=== PATIENT | male | born 1955 | race Caucasian/White ===

== ENCOUNTER 2019-01-21 12:11 | Emergency (ER) | payer MEDICARE ==
[2019-01-21] MEDS ORDERED: Ketorolac Tromethamine 30 MG/ML VIAL ONE (12:36)
--- NOTE | 2019-01-21 15:19 | RAD ---
FRONTAL AND LATERAL IMAGING LEFT TIBIA AND FIBULA: DATE: 01/21/2019. COMPARISON: None. HISTORY: Pain, fall. FINDINGS: There are numerous areas of calcification overlying the soft tissues, including multifocal vascular c alcification. Subtle nondisplaced fracture is noted at the base of the fibular head. There is soft tissue swelling overlying the lateral malleolus. Dedicated left ankle imaging advised. IMPRESSION: 1. Soft tissue swelling overlying the lateral malleolus. Recommend dedicated left ankle series. 2. Findings suggesting a nondisplaced fracture at the base of the fibular head. Dedicated left knee series advised. POS: [facility]
--- NOTE | 2019-01-21 15:22 | RAD ---
THREE VIEWS OF THE LUMBAR SPINE: DATE: 01/21/2019. COMPARISON: None. HISTORY: Leg pain, trauma, fall, pain. FINDINGS: There is extensive atherosclerotic calcification of the abdominal aorta. There is multilevel lower l umbar spine hypertrophic change, most prominent at L4-5 and L5-S1. No anterolisthesis of retrolisthe sis noted. There is disk space narrowing with anterior osteophyte formation throughout the lumbar spine. No acu te fracture is noted. IMPRESSION: Multilevel degenerative change of the lumbar spine with no displaced fracture or dislocation. POS: [facility]
--- NOTE | 2019-01-21 15:23 | RAD ---
FOUR VIEWS OF LEFT KNEE: DATE: 01/21/2019. COMPARISON: None. HISTORY: Fall, trauma, pain. FINDINGS: There is chondrocalcinosis of the medial and lateral compartment with mild joint space narrowing and osteophytosis. There is a subtle nondisplaced fracture involving the base of the fibular head, best seen on the lateral examination. Cross-table lateral radiograph of the knee demonstrates no definiti ve knee joint effusion . There is extensive atherosclerotic calcification. IMPRESSION: Findings suggesting a nondisplaced proximal fibular fracture. POS: [facility]
--- NOTE | 2019-01-21 15:26 | RAD ---
THREE VIEWS OF THE LEFT ANKLE: DATE: 01/21/2019. COMPARISON: None. HISTORY: Fall, trauma, pain. FINDINGS: There is soft tissue swelling overlying the lateral malleolus. The talar dome and ankle mortise appe ar intact. On the oblique image, there is increased density overlying the tarsal bones with possible fragmentati on. This could be related to fracture or degenerative change. A dedicated left foot series advised for further assessment. IMPRESSION: 1. Soft tissue swelling overlying the lateral malleolus with no displaced fracture or dislocation at the level of the ankle. 2. Increased density of tarsal bones along dorsal aspect of mid foot, nonspecific. This could be re lated to degenerative change or age-indeterminate trauma. Recommend dedicated left foot series. POS: [facility]
--- NOTE | 2019-01-21 15:27 | RAD ---
TWO VIEWS OF THE LEFT HIP: DATE: 01/21/2019. COMPARISON: None. HISTORY: Injury, trauma, pain. FINDINGS: There is atherosclerotic calcification seen medially. There is no displaced fracture or evidence of dislocation. There is mild superior joint space narrowing with lateral acetabular osteophyte formati on. IMPRESSION: No displaced fracture or dislocation. POS: [facility]
--- NOTE | 2019-01-21 16:01 | RAD ---
LEFT FOOT THREE VIEWS: 01/21/19 HISTORY: Pain. COMPARISON: None. FINDINGS: There does appear to be midfoot soft tissue swelling. There is a collapse of the midfoot joint space specifically at the first tarsometatarsal articulation. Erosive and destructive changes are noted. Belkis stoddard evaluation of Lisfranc alignment. If there is concern for infectious or inflammatory process, f debbie evaluation with MRI is recommended. IMPRESSION: Irregularity involving the midfoot with collapse. If there is concern for infection or inflammation, consider MRI. POS: [facility]
== END 2019-01-21 14:44 | disposition home or self-care (01) ==
LOC: ERS 12:11
DX: S82.832A Other fracture of upper and lower end of left fibula, initial encounter for closed fracture (principal); E11.9 Type 2 diabetes mellitus without complications; E78.5 Hyperlipidemia, unspecified; I10 Essential (primary) hypertension; Z87.891 Personal history of nicotine dependence; Z79.899 Other long term (current) drug therapy; Z79.84 Long term (current) use of oral hypoglycemic drugs; W18.30XA Fall on same level, unspecified, initial encounter
CPT/HCPCS: 29515; 72100; 96372; J1885

== ENCOUNTER 2019-03-13 08:40 | Outpatient (CLI) | payer MEDICARE ==
--- NOTE | 2019-03-13 09:13 | MMO ---
Bilateral MAMMO Bilat Diag [facility]DI+KAREN. CLINICAL HISTORY: Patient is 63 years old and is seen for diagnostic exam. The patient has no family history of breast cancer. The patient has no personal history of cancer. VIEWS: The views performed were: bilateral craniocaudal with tomosynthesis; bilateral mediolateral oblique with tomosynthesis; and bilateral mediolateral. MAMMOGRAM FINDINGS: The breasts are almost entirely fat. There are skin calcifications seen in both breasts. There are no suspicious masses, suspicious calcifications, or new areas of architectural distortion. IMPRESSION: THERE IS NO MAMMOGRAPHIC EVIDENCE OF MALIGNANCY. A ROUTINE FOLLOW-UP MAMMOGRAM IN 1 YEAR IS RECOMMENDED. THE RESULTS OF THIS EXAM WERE SENT TO THE PATIENT. ACR BI-RADS Category 2 - Benign finding MAMMOGRAPHY NOTE: 1. A negative mammogram report should not delay a biopsy if a dominant of clinically suspicious mass is present. 2. Approximately 10% to 15% of breast cancers are not detected by mammography. 3. Adenosis and dense breasts may obscure an underlying neoplasm.
== END 2019-03-13 08:41 | disposition home or self-care (01) ==
LOC: BICMAMMO 08:40
PROVIDERS: ATTEND Urology
DX: N62 Hypertrophy of breast (principal); Q98.4 Klinefelter syndrome, unspecified
CPT/HCPCS: 77066; G0279

== ENCOUNTER 2019-03-21 06:43 | Outpatient (CLI) | payer MEDICARE ==
--- NOTE | 2019-03-21 08:11 | ULT ---
TESTICULAR ULTRASOUND WITH DOPPLER: HISTORY: Bilateral testicular atrophy. Klinefelter syndrome, hypogonadism, testicular atrophy, low testostero ne. COMPARISON: None. TECHNIQUE: Youngblood scale, color flow, Doppler imaging, and spectral waveform analysis is performed in the left and right testicle. FINDINGS: Right Hemiscrotum: There is a diminutive right testicle with a heterogeneous echotexture, measuring 2.4 x 1.3 x 1.3 cm. Right epididymis measures 0.7 x 1.7 cm. No significant fluid I the right hemiscrotum. Left Hemiscrotum: There is a diminutive heterogeneous left testicle measuring 1.9 x 1.5 x 1.4 cm. The left epididymis measures 2.4 x 0.4 cm. No significant fluid. Testicular Doppler: There is minimal flow to both testicles. IMPRESSION: Diminutive testicles with minimal flow. POS: [facility]
== END 2019-03-21 06:44 | disposition home or self-care (01) ==
LOC: BICULT 06:43
PROVIDERS: ATTEND Urology
DX: N62 Hypertrophy of breast (principal); N50.0 Atrophy of testis; Q98.4 Klinefelter syndrome, unspecified
CPT/HCPCS: 76870; 93976

== ENCOUNTER → 2019-10-20 | Day surgery (SDC) | payer MEDICARE ==
[2019-10-17 15:24] VITALS: BMI 39.7
[~2019-10-20] MED LIST: Fentanyl 100 MCG/2 ML VIAL ONE; Heparin (Artline) 1,000 ML ONE; Heparin 10,000 UNITS/1 ML VIAL ONE; Iopamidol 370 76% 100 ML VIAL ONE; Lidocaine 1% (PF) 30 ML VIAL ONE; Midazolam HCl 2 mg/2 ml Vial ONE; Nitroglycerin 100MG/250ML BOT 250 ML ONE; Verapamil 5 MG/2 ML VIAL ONE
[2019-10-20 08:08] LABS: #Eosinphils 0.6 thou/uL (0.0-0.7); #Lymphocytes 1.2 thou/uL (1.20-3.40); #Monocytes 0.5 thou/uL (0.11-0.59); #Neutrophils 3.9 thou/uL (1.40-6.50); %Basophils 0.5 % (0.0-1.0); %Eosinophils 8.8 % (0.0-10.0); %Lymphocytes 19.7 % (21.0-51.0); %Monocytes 8.5 % (0.0-10.0); %Neutrophils 62.5 % (42.0-75.0); Hemoglobin 11.4 g/dL (14.0-18.0); Mean Corpuscular HGB CONC 33.2 g/dL (32.0-36.0); Mean Corpuscular Hemoglobin 27.7 pg (27.0-31.0); Mean Corpuscular Volume 83.7 fL (78.0-98.0); Mean Platelet Volume 8.3 fL (7.4-10.4); Platelet Count 146 thou/uL (130-400); RBC Distribution Width 15.7 % (11.5-14.5); Red Blood Cell (RBC) Count 4.11 mill/uL (4.70-6.10); White Blood Cell (WBC) Count 6.3 thou/uL (4.8-10.8)
[2019-10-20 08:23] LABS: INR-International Normal Ratio 0.9; PTT 25.3 SEC (22.9-36.1); Prothrombin Time 12.3 SEC (12.0-14.7)
[2019-10-20 08:25] LABS: ALT (SGPT) 18 U/L (8-55); AST (SGOT) 19 U/L (5-34); Albumin 4.1 g/dL (3.4-4.8); Alkaline Phosphatase 63 U/L (40-110); Anion Gap 12 mmol/L (10-20); BUN (Urea Nitrogen) 15 mg/dL (8.4-25.7); Bilirubin, Total 0.4 mg/dL (0.2-1.2); Calc. Creatinine Clearance 93 mL/min (70-130); Carbon Dioxide 30 mmol/L (23-31); Cardiac Risk 3.3 (Less than 4.5); Chloride 103 mmol/L (98-107); Cholesterol 112 mg/dl (< 200 Desired); Estimated GFR-MDRD 53; Globulin 2.3 g/dL (2.4-3.5); Glucose 187 mg/dL (80-115); HDL Cholesterol 34 mg/dL (>60 Neg Risk); LDL Cholesterol, Calculated 39 mg/dL; Potassium 4.3 mmol/L (3.5-5.1); Protein, Total 6.4 g/dL (5.8-8.1); Sodium 141 mmol/L (136-145); Triglycerides 194 mg/dL (Less than 150)
--- NOTE | 2019-10-20 12:00 | RAD ---
EXAM: Chest one view: HISTORY: Preoperative evaluation for coronary bypass COMPARISON: None FINDINGS: There is rotation to the left. Heart size: Minimally enlarged. Lungs: Clear of acute process. No evidence for confluent pneumonia, pleural effusion, acute edema, or pneumothorax, or other signifi cant acute process. IMPRESSION: No significant acute intrathoracic disease. Minimal cardiomegaly.
--- NOTE | 2019-10-20 14:05 | CON ---
DATE OF CONSULTATION: 10/20/2019 REQUESTING PHYSICIAN: Dr. Miller. PRIMARY CARE PHYSICIAN: Magi Ghosh MD CHIEF COMPLAINT: Abnormal stress test. HISTORY OF PRESENT ILLNESS: The patient is a 64-year-old diabetic man with a known history of coronary disease. He had an OH in 2005. At that time, he quit smoking, but had a second OH in 2017. The same culprit vessel was stented both times and he has been maintained on Plavix since 2005. He at one time had been on baby aspirin as well, but noted excessive bruising and was taken off the baby aspirin. 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 The patient had not been having any chest pain, pressure, or squeezing suggestive of angina or any similar symptoms radiating into his back, jaws, shoulders or arms. He has not had any dyspnea on exertion, orthopnea or dependent edema. He is not just especially active with the extent of his strenuous activities being limited to mowing his lawn and weed eating. PAST MEDICAL HISTORY: Significant for coronary artery disease, hypertension, diabetes, hyperlipidemia. CURRENT MEDICATIONS: 1. Metformin 1000 mg b.i.d. 2. Glipizide 10 mg q.a.m. 3. Actos 15 mg q.a.m. 4. Plavix 75 mg a day. 5. Crestor 40 mg at bedtime. 6. Toprol-XL 50 mg at bedtime. 7. Lisinopril 40 mg a day. 8. Lasix 20 mg a day. 9. Exenatide microspheres (Bydureon BCi) subcutaneously once a week. 10. Depo-testosterone. ALLERGIES: HE REPORTS AN ALLERGY TO PENICILLIN WHICH CAUSES HIVES. SOCIAL HISTORY: Patient smoked a pack or less a day for about 30 years, but quit in 2005. FAMILY HISTORY: Unknown. REVIEW OF SYSTEMS: Negative for any eye, speech, facial, or extremity symptoms consistent with TIAs. It is negative for any hip, buttock, thigh, or calf pain consistent with claudication. Negative for any paresthesias in his hands or feet. Negative for any dyspnea on exertion, orthopnea, PND, or dependent edema. PHYSICAL EXAMINATION: GENERAL: He is 5 feet 9 inches, weighs 269 pounds, heart rate is 71, blood pressure 139/82. HEENT: He has no xanthelasma. NECK: No JVD. No carotid bruits. CHEST: Clear to auscultation. HEART: He has a regular rate and rhythm without murmur or gallop. ABDOMEN: Obese, but soft and nontender without obvious masses, bruits, or tenderness. EXTREMITIES: He has palpable radial, femoral, and dorsalis pedis pulses bilaterally. I was not able to appreciate posterior tibial pulses. He has relatively flat arches. He has venous stasis changes primarily in the right ankle with trace edema. His ankle is perhaps a little worse on the right than on the left. NEUROLOGIC: Grossly nonfocal. LABORATORY DATA: Showed a white count of 6.3, hemoglobin 11.4, hematocrit 34.4, platelets of 146,000, MCV was 83.7. PT is 12.3, INR 0.9, PTT 25.3. Electrolytes were normal. Glucose was 187, BUN 15, creatinine 1.35 with an estimated GFR of 53. In January of this year, his BUN was 18, creatinine 1.00 with an estimated GFR of 75. In May, BUN was 35 and creatinine was 1.15 with an estimated GFR of 64 and about 2 weeks ago it was 24 and 1.3 with an EGFR of 59. His calcium is 10, albumin 4.1. LFTs are normal. Triglycerides 194, cholesterol 112, LDL 39, HDL 34. His echocardiogram shows some mild LVH with grade 1 diastolic dysfunction with an LVEF of 50% to 55% and a mildly dilated left atrium. His PET Lexiscan stress test showed small to moderate anterior perfusion defect with a resting EF of 44% and stress EF of 50%. His cardiac catheterization shows a right-dominant system with a hazy 60% to 70% distal left main lesion. He has about 70% circumflex lesion in between OM 1 and 2. He has a large high diagonal proximal to about 40% or 50% lesion in the LAD at the level of the first large septal road cleaner. He has a complex lesion in the distal RCA at the bifurcation with a fairly large PDA and a smaller but extensively arborized posterolateral branch. LVEF is around 50% to 60% with an LV pressure 122 over -3 with an EDP of 29, an aortic pressure on pullback of 130/64 and mean of 94. His chest x-ray shows cardiomegaly with cardiothoracic ratio of around 60% or 65%. There is no obvious aortic knob calcification. IMPRESSION AND RECOMMENDATIONS: Asymptomatic but significant left main coronary artery disease along with disease in the circumflex and right coronary systems proper. He has an elevated LVEDP, but reasonably well-preserved systolic function. I am going to have him stop his Plavix in 3 or 4 days, start a baby aspirin a day and plan on coronary artery bypass grafting the Wednesday after , which will make him about 10 days off Plavix. Job ID: [id number]
== END ==
LOC: CCL 06:51
PROVIDERS: ATTEND Internal Medicine Cardiovascular Disease
PROC: 4A023N7 Measurement of Cardiac Sampling and Pressure, Left Heart, Percutaneous Approach (ICD-10-PCS; principal; 2019-10-20)
PROC: B2111ZZ Fluoroscopy of Multiple Coronary Arteries using Low Osmolar Contrast (ICD-10-PCS; 2019-10-20)
DX: I25.10 Atherosclerotic heart disease of native coronary artery without angina pectoris (principal); E11.9 Type 2 diabetes mellitus without complications; E78.00 Pure hypercholesterolemia, unspecified; I10 Essential (primary) hypertension; I25.2 Old myocardial infarction; Z79.84 Long term (current) use of oral hypoglycemic drugs; Z79.899 Other long term (current) drug therapy; Z87.891 Personal history of nicotine dependence; Z88.0 Allergy status to penicillin
CPT/HCPCS: 71045; 80053; 80061; 85025; 85610; 85730; 93458; 99152; 99153; C1769; J1644; J2001; J2250; J3010; Q9967

== ENCOUNTER 2019-10-25 09:37 | Outpatient (CLI) | payer MEDICARE ==
--- NOTE | 2019-10-25 18:50 | EKG ---
Test Reason : Blood Pressure : / mmHG Vent. Rate : 084 BPM Atrial Rate : 084 BPM P-R Int : 240 ms QRS Dur : 090 ms QT Int : 344 ms P-R-T Axes : 037 013 001 degrees QTc Int : 406 ms Sinus rhythm with 1st degree A-V block Inferior infarct , age undetermined No previous ECGs available Confirmed by DR. Davidson DALE MD ([id number]) on 10/25/2019 6:49:52 PM Referred By: DALILA Confirmed By:DR. Davidson DALE MD
== END 2019-10-25 09:38 | disposition home or self-care (01) ==
LOC: LABBT 09:37
PROVIDERS: ATTEND Thoracic Surgery (Cardiothoracic Vascular Surgery)
DX: Z01.818 Encounter for other preprocedural examination (principal); I25.10 Atherosclerotic heart disease of native coronary artery without angina pectoris
CPT/HCPCS: 93005; 93010

== ENCOUNTER 2019-10-30 06:17 | Inpatient (IN) | payer MEDICARE ==
[2019-10-25 14:20] LABS: #Basophils 0.1 thou/uL (0.0-0.2); #Eosinphils 0.5 thou/uL (0.0-0.7); #Lymphocytes 1.2 thou/uL (1.20-3.40); #Monocytes 0.5 thou/uL (0.11-0.59); #Neutrophils 4.1 thou/uL (1.40-6.50); %Basophils 0.8 % (0.0-1.0); %Eosinophils 7.8 % (0.0-10.0); %Lymphocytes 18.9 % (21.0-51.0); %Monocytes 7.4 % (0.0-10.0); %Neutrophils 65.1 % (42.0-75.0); Hemoglobin 12.6 g/dL (14.0-18.0); Mean Corpuscular HGB CONC 33.3 g/dL (32.0-36.0); Mean Corpuscular Hemoglobin 27.5 pg (27.0-31.0); Mean Corpuscular Volume 82.6 fL (78.0-98.0); Mean Platelet Volume 8.1 fL (7.4-10.4); Platelet Count 164 thou/uL (130-400); RBC Distribution Width 15.7 % (11.5-14.5); Red Blood Cell (RBC) Count 4.59 mill/uL (4.70-6.10); White Blood Cell (WBC) Count 6.2 thou/uL (4.8-10.8)
[2019-10-25 14:39] LABS: Anion Gap 15 mmol/L (10-20); BUN (Urea Nitrogen) 18 mg/dL (8.4-25.7); Calc. Creatinine Clearance 84 mL/min (70-130); Calcium 10.1 mg/dL (7.8-10.44); Carbon Dioxide 29 mmol/L (23-31); Chloride 103 mmol/L (98-107); Estimated GFR-MDRD 47; Glucose 167 mg/dL (80-115); Potassium 4.5 mmol/L (3.5-5.1); Sodium 142 mmol/L (136-145)
[2019-10-30] MEDS ORDERED: Clindamycin/D5W 900 mg/50 ml Premix Bag ONE ×2 (06:27→11:46)
[2019-10-30] MEDS ORDERED: Albumin 5% 500 ML ONE (06:30)
[2019-10-30] MEDS ORDERED: Heparin 10,000 UNITS/1 ML VIAL 30,000 UNITS in Sodium Chloride 0.9% 1,000 ML FS SCH (06:45)
[2019-10-30] MEDS ORDERED: Vecuronium 10 MG VIAL ONE ×2 (06:46→14:21)
[2019-10-30] MEDS ORDERED: Midazolam HCl 5 mg/5 ml Vial ONE (06:46)
[2019-10-30] MEDS ORDERED: Fentanyl 250 MCG/5 ML VIAL ONE (06:46)
[2019-10-30] MEDS ORDERED: Dexmedetomidine 200 MCG/2 ML VIAL ONE (06:46)
[2019-10-30] MEDS ORDERED: Midazolam HCl 2 mg/2 ml Vial ONE ×2 (07:18→07:21)
[2019-10-30] MEDS ORDERED: Ondansetron ODT 4 MG TAB ONE (07:21)
[2019-10-30] MEDS ORDERED: Bisacodyl 10 MG SUPP PR PRN (07:29)
[2019-10-30] MEDS ORDERED: Ondansetron PF 4 MG/2 ML Vial IVP PRN (07:29)
[2019-10-30] MEDS ORDERED: Post-Op Insulin Drip Protocol IVPB ONE (07:29)
[2019-10-30] MEDS ORDERED: Morphine 2 MG/ML SYRINGE SLOW IVP PRN (07:29)
[2019-10-30] MEDS ORDERED: niCARdipine 25 MG in Sodium Chloride 0.9% 250 ML 250 ML IVPB PRN (07:29)
[2019-10-30] MEDS ORDERED: hydrALAZINE 20 MG/ML VIAL SLOW IVP PRN (07:29)
[2019-10-30] MEDS ORDERED: Nitroglycerin 50 MG/250 ML BOT 250 ML IVPB PRN (07:29)
[2019-10-30] MEDS ORDERED: Mag-Al 1200 mg/1200 mg/30 ML UDCUP PO PRN (07:29)
[2019-10-30] MEDS ORDERED: HYDROcodone/Acetaminophen 5/325 mg Tablet PO PRN ×2 (07:29)
[2019-10-30] MEDS ORDERED: Hetastarch 6% 500 ML 500 ML IVPB PRN (07:29)
[2019-10-30] MEDS ORDERED: Fentanyl 100 MCG/2 ML VIAL SLOW IVP PRN (07:29)
[2019-10-30] MEDS ORDERED: Bisacodyl 5 MG TAB PO PRN (07:29)
[2019-10-30] MEDS ORDERED: Promethazine HCl 25 MG/ML VIAL IM PRN (07:29)
[2019-10-30] MEDS ORDERED: Potassium Chloride 20 MEQ/100 ML PREMIX BAG IVPB PRN (07:29)
[2019-10-30] MEDS ORDERED: Guaifenesin DM 100-10/5 ML UDCUP PO PRN (07:29)
[2019-10-30] MEDS ORDERED: Acetaminophen 325 MG TAB PO PRN (07:29)
[2019-10-30] MEDS ORDERED: Norepinephrine 8 MG/0.9% NS 250 ML IVPB PRN (07:29)
[2019-10-30] MEDS ORDERED: Insulin Regular 300 UNITS/3 ML VIAL ONE ×2 (07:54→08:58)
[2019-10-30] MEDS ORDERED: Dextrose 5% in Water 1,000 ML IV PRN (07:59)
[2019-10-30] MEDS ORDERED: Dextrose 50% Abboject 50 ML SYRINGE SLOW IVP PRN (07:59)
[2019-10-30] MEDS ORDERED: HUMULIN R 100 UNITS in Sodium Chloride 0.9% 100 ML IVPB SCH (07:59)
[2019-10-30] MEDS ORDERED: EXENATIDE MICROSPHERES SC SCH (09:00)
[2019-10-30] MEDS ORDERED: Ketorolac Tromethamine 30 MG/ML VIAL IVP SCH (12:00)
[2019-10-30] MEDS: Aspirin 325 MG TAB PO SCH (12:43)
[2019-10-30] MEDS: Sodium Chloride 0.9% 1,000 ML IV SCH ×2 (12:43→20:53)
[2019-10-30] MEDS: Famotidine/PF 20 mg/2ml Vial SLOW IVP SCH ×2 (12:43→20:53)
[2019-10-30] MEDS: Docusate 100 MG CAP PO SCH ×2 (12:43→20:53)
[2019-10-30] MEDS ORDERED: Cardioplegic Soln 1,000 ML BAG ONE (14:21)
[2019-10-30] MEDS ORDERED: Ondansetron PF 4 MG/2 ML Vial ONE (14:21)
[2019-10-30] MEDS ORDERED: Nitroglycerin 50 MG/250 ML BOT ONE (14:21)
[2019-10-30] MEDS ORDERED: Thrombin 5000 UNITS/5 ML VIAL ONE (14:21)
[2019-10-30] MEDS ORDERED: Calcium Chloride 1 GM/10 ML Abboject SYRINGE ONE (14:21)
[2019-10-30] MEDS ORDERED: PROPOFOL 200 MG/20 ML VIAL ONE (14:21)
[2019-10-30] MEDS ORDERED: Heparin 30,000 units/30 ml VIAL ONE (14:21)
[2019-10-30] MEDS ORDERED: Sodium Bicarb 50 MEQ/50 ML Abboject 8.4% SYRINGE ONE (14:21)
[2019-10-30] MEDS ORDERED: Aminocaproic Acid 5 GM/20 ML VIAL ONE (14:21)
[2019-10-30] MEDS ORDERED: Protamine Sulfate 250 MG/25 ML VIAL ONE (14:21)
[2019-10-30] MEDS ORDERED: Magnesium Sulfate 1 GM/2 ML VIAL ONE (14:21)
[2019-10-30] MEDS ORDERED: Glycopyrrolate 0.2 MG/ML 5 ML SYRINGE ONE (14:21)
[2019-10-30] MEDS ORDERED: Lidocaine 2% PF 5 ML VIAL ONE (14:21)
[2019-10-30] MEDS ORDERED: Norepinephrine 4 MG/4 ML VIAL ONE (14:21)
[2019-10-30] MEDS ORDERED: Lidocaine 1% PF 5 ML VIAL ONE (14:21)
[2019-10-30] MEDS ORDERED: Papaverine 60 MG/2 ML VIAL ONE (14:21)
[2019-10-30] MEDS ORDERED: Potassium Chloride 60 MEQ/30 ML VIAL ONE (14:21)
[2019-10-30] MEDS ORDERED: Heparin 5,000 UNITS/ML VIAL ONE (14:21)
[2019-10-30 14:28] LABS: Actual Bicarbonate (HCO3a) 25.8 mEq/L (22-28); Base Excess (BEa) 1.1 mEq/L (-2.0 to +3.0); CO2 Tension 41.6 mmHg (35.0-45.0); Calcium, Ionized 1.11 mmol/L (1.12-1.30); Carboxyhemoglobin (COHb) 0.7 gm% (0.0-3.0); Hemoglobin (Hb) 10.5 g/dL (14.0-18.0); Potassium - ABG Lab 4.16 mmol/L (3.70-5.30); pH, Arterial 7.41 (7.35-7.45)
[2019-10-30 14:29] LABS: Puncture Site ALINE
--- NOTE | 2019-10-30 14:35 | RAD ---
Chest one view HISTORY: Heart surgery. Follow-up. COMPARISON: 10/20/2019. FINDINGS: Cardiac silhouette is magnified and enlarged. Pulmonary vasculature is more engorged than o n the prior study with patchy bilateral perihilar infiltrates. Mediastinum is midline with new postoperative changes. Tip of an endotracheal catheter projects over the thoracic inlet. Tip of a rig ht subclavian central venous catheter projects over the left subclavian vein at the level of the midclavicular shaft. Marked on the image. Left thoracostomy tube is in place. Atelectasis at the left base. Opaque drain over the mediastinum. IMPRESSION: Interval postoperative changes of the mediastinum. Right subclavian central venous catheter extends to the left subclavian vein at the level of the midc lavicular shaft. Mild pulmonary vascular congestion. Cardiomegaly.
[2019-10-30 14:48] LABS: #Eosinphils 0.2 thou/uL (0.0-0.7); #Lymphocytes 1.2 thou/uL (1.20-3.40); #Monocytes 1.1 thou/uL (0.11-0.59); #Neutrophils 8.2 thou/uL (1.40-6.50); %Basophils 0.3 % (0.0-1.0); %Eosinophils 1.8 % (0.0-10.0); %Lymphocytes 11.1 % (21.0-51.0); %Monocytes 10.5 % (0.0-10.0); %Neutrophils 76.3 % (42.0-75.0); Hemoglobin 10.2 g/dL (14.0-18.0); Mean Corpuscular Hemoglobin 27.5 pg (27.0-31.0); Mean Corpuscular Volume 83.2 fL (78.0-98.0); Mean Platelet Volume 7.7 fL (7.4-10.4); Platelet Count 156 thou/uL (130-400); RBC Distribution Width 15.4 % (11.5-14.5); Red Blood Cell (RBC) Count 3.73 mill/uL (4.70-6.10); White Blood Cell (WBC) Count 10.7 thou/uL (4.8-10.8)
[2019-10-30 14:55] LABS: INR-International Normal Ratio 1.2; PTT 23.9 SEC (22.9-36.1); Prothrombin Time 15.2 SEC (12.0-14.7)
[2019-10-30 15:08] LABS: Anion Gap 11 mmol/L (10-20); BUN (Urea Nitrogen) 11 mg/dL (8.4-25.7); Calc. Creatinine Clearance 110 mL/min (70-130); Calcium 8.1 mg/dL (7.8-10.44); Carbon Dioxide 26 mmol/L (23-31); Chloride 108 mmol/L (98-107); Estimated GFR-MDRD 64; Glucose 104 mg/dL (80-115); Potassium 3.9 mmol/L (3.5-5.1); Sodium 141 mmol/L (136-145)
--- NOTE | 2019-10-30 15:58 | CON ---
DATE OF CONSULTATION: 10/30/2019 REASON FOR CONSULTATION: Status post CABG. HISTORY OF PRESENT ILLNESS: Mr. Gu is a very pleasant 64-year-old white gentleman, who comes to the hospital for a planned CABG. He was seen in the office for symptoms concerning for angina. He wanted to be conservative at first. We treated him medically and his symptoms continued. His stress test showed anterior ischemia with reduced EF at 44%, but normal EF on the echo at 50% to 55%. He underwent heart catheterization that showed multivessel disease, so we recommended coronary artery bypass grafting, which was performed earlier today by Dr. Figueredo. He is currently intubated and still under sedation. Blood pressure is borderline low, but holding with a MAP of 70 to 75 on no pressors. PAST MEDICAL HISTORY: 1. Hyperlipidemia. 2. Type 2 diabetes. 3. CAD. 4. Hypertension. PAST SURGICAL HISTORY: CABG earlier today. OUTPATIENT MEDICATIONS: 1. Bydureon 2 mg pen injector subcutaneous weekly. 2. Plavix 75 mg a day. 3. Lisinopril 40 mg a day. 4. Pioglitazone 50 mg a day. 5. Crestor 40 mg a day. 6. Toprol-XL 25 mg a day. 7. Metformin 1000 mg b.i.d. 8. Testosterone 200 mg intramuscular. ALLERGIES: NO KNOWN DRUG ALLERGIES. SOCIAL HISTORY: Former smoker. No alcohol or drugs. FAMILY HISTORY: Noncontributory. REVIEW OF SYSTEMS: Unobtainable as the patient is sedated and intubated. PHYSICAL EXAMINATION: VITAL SIGNS: Temperature 98.2, pulse 83, respiratory rate 18, saturating 98% on 40% FiO2, blood pressure 91/73. GENERAL: Sedated and intubated. HEENT: Normocephalic and atraumatic. NECK: Supple. LUNGS: Have coarse breath sounds anteriorly. CARDIOVASCULAR: S1 and S2. There is a three-component rub consistent with his recent CABG and chest tubes. ABDOMEN: Soft. EXTREMITIES: Bruised. No edema in the right leg, 1+ in the left leg where the harvest sites were. SKIN: Warm and dry. LABORATORY DATA: Laboratory work was reviewed. CBC with a white count of 10; hemoglobin of 12.6 on admission, 10.2 after bypass; hematocrit of 31; platelet count of 156. Coags were normal. ABG was unremarkable. Chemistries were unremarkable. Telemetry was reviewed. ASSESSMENT: 1. Multivessel coronary artery disease. 2. Status post coronary artery bypass grafting. 3. Hypertension. 4. Hyperlipidemia. PLAN: 1. Continue supportive care for now. 2. He has been weaned off his Levophed and is holding his blood pressure well. I expect his blood pressure to come back up once he wakes up from anesthesia. 3. Aspirin and statin for life. 4. Beta-manish and CORTNEY inhibitor once blood pressure allows. 5. PT once more stable. Thank you for letting us participate in the care of your patient. We will follow. Job ID: [id number]
--- NOTE | 2019-10-30 16:27 | OP ---
DATE OF PROCEDURE: 10/30/2019 PROCEDURES PERFORMED: 1. Coronary artery bypass grafting x4 with left internal mammary artery to the distal left anterior descending, reverse greater saphenous vein grafts from the aorta to the second obtuse marginal from the obtuse marginal 2 graft to the obtuse marginal 1 and from the aorta to the posterior descending artery. 2. A 5-Nepalese right femoral arterial line placement. PREOPERATIVE DIAGNOSIS: Left main coronary artery disease. POSTOPERATIVE DIAGNOSIS: Left main coronary artery disease. NURSING MANAGER: Matthew Causey MD. ANESTHESIA: General endotracheal anesthesia. INDICATIONS: The patient is a rather large 64-year-old diabetic man with known coronary artery disease, having had coronary stenting following each of 2 previous myocardial infarctions. Screening stress testing suggested reversible ischemia and cardiac catheterization demonstrated left main coronary artery disease. He is now taken to the operating room for surgical revascularization. FINDINGS: Pump time 93 minutes. Cross-clamp time 56 minutes. Good quality saphenous vein that came very large in the proximal thigh. Large heart. Large good quality internal mammary artery. The LAD was about a 2-mm vessel. The OM1 was about 2 mm, the OM2 was about 1.5 to 2 mm, and the PDA was about 2 mm. The pericardium was loosely reapproximated. NARRATIVE REPORT: After informed consent was obtained, the patient was taken to the operating room and placed in supine position on the operating table. After the induction of general anesthesia, the patient's left greater saphenous vein was ultrasonographically mapped and marked. His right upper chest was prepped and draped in a sterile fashion and he was placed in Trendelenburg. A triple-lumen central line kit was used to place a right subclavian line by the Seldinger technique. All 3 ports easily aspirated and flushed. The line was secured. There had been significant difficulty in establishing peripheral IV access and radial artery access. The left radial artery had been successfully cannulated, but it became difficult to draw back on the line and it was opted to place a femoral arterial line in an attempt to achieve secure arterial line monitoring. His right groin was prepped and draped in sterile fashion. After ultrasonographically identifying the level of the common femoral bifurcation, a 5-Nepalese arterial sheath kit was used to place a right femoral line by the Seldinger technique, although the patient's body habitus made the line somewhat positional. It aspirated and flushed well. The line was secured and then the patient's torso, groins, and lower extremities were prepped and draped in sterile fashion. Greater saphenous vein was exposed a little above the left knee and was endoscopically mobilized proximally, it became rather large. It was feasible to endoscopically harvest the vein from the thigh, but fat obscured adequate visualization of the lower leg vein, and in order to divide the side branches, a skin bridge technique was utilized. The vein was prepared for use as a graft and the harvest sites were closed in layers of subcutaneous and subcuticular Vicryl. A median sternotomy was performed and the left pleural space was entered. The left ROSA was mobilized as a pedicle from the level of the xiphoid to the level of subclavian vein, controlling side branches with small hemoclips. The patient was heparinized and the mammary was ligated and divided distally. There was good flow through the mammary, which was then instilled intraluminally with papaverine solution. It dilated nicely with that. The mammary bed was inspected for hemostasis. An ROSA retractor was placed with a Frausto retractor. The pericardium was opened and marsupialized. The aorta was palpated and was soft. The patient had a very large heart and the chest. Because of body habitus, it was opted to use a 20-Nepalese femoral arterial cannula for aortic cannulation. A double concentric pursestring of 2-0 Ethibond was placed in the ascending aorta beyond the pericardial reflection and a single pursestring was placed in the right atrial appendage. Arterial and venous cannulas were inserted and secured by the pursestrings. The plane between the aorta and the pulmonary artery was developed. The heart was examined and the vessels to be bypassed were identified. A longitudinal slit was made in the pericardium anterior to the left phrenic nerve, through which the mammary could be passed. An aortic cross-clamp was applied and cardioplegia was administered through an aortic root needle. When arrest had been achieved, attention was turned 1st to the PDA. It was exposed and opened beyond palpable plaquing and a stent, where it was a good quality vessel. Saphenous vein was reversed and anastomosed their end-to-side with running Prolene suture and the anastomosis was tested by flushing cold cardioplegia down the graft. The OM2 was then opened just proximal to where it dove intramyocardially just a little bit beyond where it emerged from the AV groove. It was grafted end-to-side with saphenous vein. The OM1 was then opened at the level of the tip of the left atrial appendage before it dove intramyocardially. It was grafted end-to-side with saphenous vein. The LAD was then opened distally, where it was readily accessible in a good quality vessel. The mammary was anastomosed there with running 7-0 Prolene and the mammary pedicle was tacked to the epicardium. The aortic cross-clamp was replaced with a partial occluding clamp and 2 aortotomies were made in the ascending aorta with a scalpel and punch. The PDA graft was brought along the right side of the heart and anastomosed to the more proximal aortotomy and the OM2 graft was brought along the left side of the heart and anastomosed to the more distal aortotomy. The OM1 graft was anastomosed to the OM2 graft about a centimeter or a centimeter and a half beyond the proximal anastomosis. The partial occluding clamp was removed and the vein grafts were de-aired and the bulldogs removed from them. The anastomoses were inspected for hemostasis and the proximal anastomoses were marked with small hemoclips. A left pleural drain and a posterior pericardial drain were placed, bringing them out through separate incisions and securing it in the skin with suture. Right atrial and right ventricular temporary epicardial pacing wires were placed. The patient was then easily from cardiopulmonary bypass. Aortic and venous cannulas were removed and the pursestring secured. Protamine was administered. When hemostasis was adequate, an anterior mediastinal drain was placed and the mediastinal fat and pericardium were tacked back together to affect a loose pericardial closure. The cut surfaces of the sternum were treated with platelet-rich GPS and vancomycin paste. #7 stainless steel wires were placed along the full length of the sternum and zip ties around the body of the sternum. The wires and zip ties were tightened. The soft tissues were irrigated and treated with platelet-poor GPS. The fascia was closed over the wires and zip ties with running #1 Vicryl. Subcutaneous tissue was reapproximated with 2-0 Vicryl and the skin was closed with a 3-0 Vicryl subcuticular suture. Dermabond and dressings were applied and the patient was taken to the intensive care unit in stable condition. Job ID: [id number]
[2019-10-30 19:09] LABS: Actual Bicarbonate (HCO3a) 22.2 mEq/L (22-28); Base Excess (BEa) -2.9 mEq/L (-2.0 to +3.0); Calcium, Ionized 1.13 mmol/L (1.12-1.30); Carboxyhemoglobin (COHb) 0.6 gm% (0.0-3.0); Hemoglobin (Hb) 10.5 g/dL (14.0-18.0); O2 Tension (PaO2) 89.4 mmHg (> 80.0); Potassium - ABG Lab 4.43 mmol/L (3.70-5.30); pH, Arterial 7.36 (7.35-7.45)
[2019-10-30 19:10] LABS: Puncture Site LINE
[2019-10-30] MEDS: Fentanyl 100 MCG/2 ML VIAL SLOW IVP PRN (19:51)
[2019-10-30] MEDS: Rosuvastatin 20 MG TAB PO SCH (20:53)
[2019-10-30 21:48] LABS: Hemoglobin 10.4 g/dL (14.0-18.0)
[2019-10-30 22:03] LABS: Potassium 5.1 mmol/L (3.5-5.1)
[2019-10-30] MEDS: Acetaminophen 1,000 MG in Premix Bag 1 BAG IVPB SCH (23:43)
[2019-10-31] MEDS: Fentanyl 100 MCG/2 ML VIAL SLOW IVP PRN ×8 (00:31→23:47)
[2019-10-31 03:31] LABS: #Lymphocytes 0.8 thou/uL (1.20-3.40); #Monocytes 1.2 thou/uL (0.11-0.59); #Neutrophils 8.7 thou/uL (1.40-6.50); %Basophils 0.2 % (0.0-1.0); %Eosinophils 0.1 % (0.0-10.0); %Lymphocytes 7.4 % (21.0-51.0); %Monocytes 10.8 % (0.0-10.0); %Neutrophils 81.5 % (42.0-75.0); Hemoglobin 9.4 g/dL (14.0-18.0); Mean Corpuscular HGB CONC 33.3 g/dL (32.0-36.0); Mean Corpuscular Hemoglobin 28.2 pg (27.0-31.0); Mean Corpuscular Volume 84.9 fL (78.0-98.0); Mean Platelet Volume 8.3 fL (7.4-10.4); Platelet Count 167 thou/uL (130-400); RBC Distribution Width 15.4 % (11.5-14.5); Red Blood Cell (RBC) Count 3.33 mill/uL (4.70-6.10); White Blood Cell (WBC) Count 10.7 thou/uL (4.8-10.8)
[2019-10-31 03:53] LABS: Anion Gap 12 mmol/L (10-20); BUN (Urea Nitrogen) 16 mg/dL (8.4-25.7); Calc. Creatinine Clearance 94 mL/min (70-130); Carbon Dioxide 24 mmol/L (23-31); Chloride 108 mmol/L (98-107); Estimated GFR-MDRD 53; Glucose 142 mg/dL (80-115); Potassium 4.7 mmol/L (3.5-5.1); Sodium 139 mmol/L (136-145)
[2019-10-31] MEDS: Acetaminophen 1,000 MG in Premix Bag 1 BAG IVPB SCH ×3 (05:12→17:57)
[2019-10-31] MEDS ORDERED: Furosemide 40 MG/4 ML VIAL SLOW IVP SCH ×2 (06:45→16:00)
--- NOTE | 2019-10-31 07:40 | RAD ---
Chest AP view INDICATION: Status post open-heart surgery COMPARISON: October 30, 2019 FINDINGS: Lungs:Perihilar edema has mildly improved. Cardiac silhouette:Moderate cardiomegaly persists. Pulmonary vasculature:Pulmonary vascular congestion is stable. Pleural spaces:Left-sided thoracostomy tube is unchanged. No pneumothorax. Upper abdomen:No abnormality seen. Osseous structures: No acute osseous abnormality. Additional findings:Right subclavian central venous catheter crossing midline and projecting into the left subclavian vein is unchanged in position. Midline sternotomy changes are stable. IMPRESSION: Improving central edema pattern.
[2019-10-31] MEDS: Docusate 100 MG CAP PO SCH ×2 (08:25→20:54)
[2019-10-31] MEDS: Gabapentin 300 MG CAP PO SCH ×2 (08:26→20:54)
[2019-10-31] MEDS: Aspirin 325 MG TAB PO SCH (08:26)
[2019-10-31] MEDS: Famotidine/PF 20 mg/2ml Vial SLOW IVP SCH ×2 (08:29→20:54)
[2019-10-31] MEDS: Insulin Regular 300 UNITS/3 ML VIAL SC PRN ×5 (10:08→23:52)
--- NOTE | 2019-10-31 10:53 | CON ---
DATE OF CONSULTATION: This is a 64-year-old gentleman, status post CABG in the ICU. REASON FOR CONSULTATION: He had abnormal stress test done, which showed depressed EF of 44%, and cardiac cath revealed severe coronary artery disease. He is status post CABG. Postop is extubated. He denies any difficulty breathing. X-ray shows no new infiltrates. PAST MEDICAL HISTORY: Pertinent for, 1. Hypertension. 2. Previous coronary disease. 3. Hyperlipidemia. 4. Tobacco abuse in the past. PAST SURGICAL HISTORY: Previous cardiac stent twice. ALLERGIES: PENICILLIN. SOCIAL HISTORY: Unremarkable. FAMILY HISTORY: Unremarkable. HOME MEDICATIONS: 1. Metformin 1000 b.i.d. 2. Glipizide 10 a day. 3. Calcium 40. 4. Actos 15. 5. . 6. Lisinopril 20. 7. Lasix 20. 8. B12. REVIEW OF SYSTEMS: Unremarkable postop. PHYSICAL EXAMINATION: GENERAL: Awake, alert, and responsive. VITAL SIGNS: Blood pressure 100/63, pulse 80, respiratory rate 18, saturations 90%. He is afebrile. CHEST: Reveals no wheezing or crackles. CARDIAC: Normal S1 and S2. No gallops. ABDOMEN: No masses. Soft. LABORATORY DATA: White count 10,000. Lytes are normal. Creatinine 1.34. ASSESSMENT AND PLAN: 1. Status post coronary artery bypass graft, left main. 2. Diabetes. 3. Former smoker. 4. Mild azotemia. 5. Hypertension. He appears to be stable in the ICU. Continue PT supportive care. Disposition as per Cardiology. We will follow on the ICU. Job ID: [id number]
--- NOTE | 2019-10-31 17:30 | PDOC.CPN ---
- Subjective Date: 10/31/19 Time: 17:28 Interval history: He is now extubated. Off pressors since noon. Passing gas. - Review of Systems General: denies: fever/chills, weight/appetite/sleep changes, night sweats, fatigue Respiratory: reports: cough. denies: congestion, shortness of breath, exercise intolerance Cardiovascular: reports: edema. denies: chest pain, palpitation, paroxysmal nocturnal dyspnea, orthopnea Gastrointestinal: denies: nausea, vomiting, diarrhea, constipation, abd pain, GI bleeding Musculoskeletal: reports: pain. denies: tenderness, stiffness, swelling, arthritis/arthralgias Neurological: denies: numbness, syncope, seizure, weakness - Objective Allergies/Adverse Reactions: Allergies Allergy/AdvReac Type Severity Reaction Status Date / Time Penicillins Allergy Verified 10/25/19 08:44 Visit Medications: Current Medications Al Hydroxide/Mg Hydroxide (Maalox) 30 ml PO Q4H PRN PRN Reason: Indigestion Albuterol/Ipratropium (Duoneb) 3 ml NEB [id number] PRN PRN Reason: SHORTNESS OF BREATH Aspirin (Aspirin) 325 mg PO DAILY [facility] Last Admin: 10/31/19 08:26 Dose: 325 mg Bisacodyl (Dulcolax) 10 mg PO Q12H PRN PRN Reason: Constipation Bisacodyl (Dulcolax) 10 mg [place] Q12H PRN PRN Reason: Constipation Dextrose/Water (Dextrose 50%) 25 gm SLOW IVP PRN PRN PRN Reason: PER HYPOGLYCEMIC PROTOCOL Docusate Sodium (Colace) 100 mg PO BID [facility] Last Admin: 10/31/19 08:25 Dose: 100 mg Famotidine (Pepcid) 20 mg SLOW IVP Q12HR [facility] Last Admin: 10/31/19 08:29 Dose: 20 mg Fentanyl (Sublimaze) 25 mcg SLOW IVP Q2H PRN PRN Reason: Moderate Pain (4-6) Stop: 11/01/19 07:29 Last Admin: 10/30/19 22:39 Dose: 25 mcg Fentanyl (Sublimaze) 50 mcg SLOW IVP Q2H PRN PRN Reason: Severe Pain (7-10) Stop: 11/01/19 07:29 Last Admin: 10/31/19 16:00 Dose: 50 mcg Furosemide (Lasix) 40 mg SLOW IVP 1600 ELISA Stop: 10/31/19 18:00 Last Admin: 10/31/19 16:00 Dose: 40 mg Gabapentin (Neurontin) 300 mg PO BID [facility] Last Admin: 10/31/19 08:26 Dose: 300 mg Glucagon (Glucagon) 1 mg SC PRN PRN PRN Reason: PER HYPOGLYCEMIC PROTOCOL Guaifenesin/Dextromethorphan (Robitussin Dm) 15 ml PO Q4H PRN PRN Reason: Cough Hydralazine HCl (Apresoline) 10 mg SLOW IVP Q6H PRN PRN Reason: To Maintain SBP< 140mmHG Norepinephrine Bitartrate (Levophed) 250 mls @ 0 mls/hr IVPB PRN PRN; Protocol PRN Reason: To maintain SBP > 90 mmHG Nicardipine HCl 25 mg/ Sodium (Chloride) 260 mls @ 0 mls/hr IVPB INF PRN; Protocol PRN Reason: To Maintain SBP< 140mmHG Nitroglycerin/Dextrose (Nitroglycerin 50 Mg/250 Ml Bot) 250 mls @ 0 mls/hr IVPB PRN PRN; Protocol PRN Reason: To Maintain SBP< 140mmHG Insulin Human Regular 100 (units/ Sodium Chloride) 101 mls @ 0 mls/hr IVPB INF ELISA; Protocol Dextrose/Water (D5w) 1,000 mls @ 0 mls/hr IV INF PRN PRN Reason: PRN HYPOGLYCEMIC PROTOCOL Acetaminophen 1,000 mg/ Device 100 mls @ 400 mls/hr IVPB Q6HR ELISA Stop: 10/31/19 18:14 Last Admin: 10/31/19 11:14 Dose: 100 mls Insulin Human Regular (Humulin R) 0 units SC Q4H PRN; Protocol PRN Reason: POST OP SLIDING SCALE Last Admin: 10/31/19 16:02 Dose: 6 unit Morphine Sulfate (Morphine) 2 mg SLOW IVP Q15MIN PRN PRN Reason: Severe Pain (7-10) Ondansetron HCl (Zofran) 4 mg IVP Q6H PRN PRN Reason: Nausea/Vomiting Exenatide Microspheres [ Bydureon Bcise] 0 each SC Q7DAYS [facility] Potassium Chloride (Kcl) 20 meq IVPB PRN PRN PRN Reason: K level </= 4.0 Last Admin: 10/30/19 15:22 Dose: 20 meq Promethazine HCl (Phenergan) 6.25 mg IM Q4H PRN PRN Reason: Nausea/Vomiting Rosuvastatin Calcium (Crestor) 40 mg PO HS [facility] Last Admin: 10/30/19 20:53 Dose: 40 mg Sodium Chloride (Flush - Normal Saline) 10 ml IVF Q12HR ELISA Last Admin: 10/31/19 08:30 Dose: 10 ml Vital Signs & Weight: Vital Signs Temp Pulse Ox 10/31/19 08:00 98.7 F 94 L Weight 4.445 oz - Physical Exam General: alert & oriented x3 HEENT: mucus membranes moist Neck: supple neck, midline trachea Cardiac: regular rate and rhythm Lungs: normal breath sounds Neuro: grossly intact Abdomen: active bowel sounds, soft, non-tender Extremities: 1+ LE edema Skin: clear Musculoskeletal: normal range of motion - Labs Result Diagrams: 10/31/19 03:20 10/31/19 03:20 - Telemetry Sinus rhythms and dysrhythmias: sinus rhythm - Assessment/Plan Assessment/Plan: 1. Multivessel CAD. 2. S/P CABG x 4, AMBRIZ to LAD, SVG to OM2 sequential to OM3, SVG to RPDA. 3. Type 2 DM 4. HTN PLAN: - Aspirin/statin - BB and ACEI once BP allows - Start PT soon.
[2019-10-31] MEDS: Rosuvastatin 20 MG TAB PO SCH (20:54)
[2019-11-01] MEDS: Fentanyl 100 MCG/2 ML VIAL SLOW IVP PRN (01:59)
[2019-11-01] MEDS ORDERED: Fentanyl 100 MCG/2 ML VIAL ONE (04:09)
[2019-11-01] MEDS ORDERED: Rosuvastatin 20 MG TAB ONE (09:05)
--- NOTE | 2019-11-01 13:46 | PRG ---
DATE OF SERVICE: 11/01/2019 SUBJECTIVE: Warren Gu is status post CABG. He is doing well. He is less short of breath, less cough and less wheezing. OBJECTIVE: VITAL SIGNS: Blood pressure 119/74, pulse 109, saturations 98%, respiratory rate 18. CHEST: No wheezing, crackles. CARDIAC: Normal S1, S2. No gallops. ABDOMEN: No masses. ASSESSMENT: Status post coronary artery bypass grafting, respiratory failure, stable. PLAN: Disposition as per Cardiology. We will follow while in the ICU. Job ID: [id number]
[2019-11-01] MEDS ORDERED: HYDROmorphone 2 MG TAB PO PRN (14:25)
[2019-11-01] MEDS ORDERED: Acetaminophen 1,000 MG in Premix Bag 1 BAG IVPB SCH (14:30)
[2019-11-01] MEDS: Aspirin 325 MG TAB PO SCH (15:13)
[2019-11-01] MEDS: Docusate 100 MG CAP PO SCH ×2 (15:13→20:48)
[2019-11-01 15:48] LABS: Anion Gap 6 mmol/L (10-20); BUN (Urea Nitrogen) 20 mg/dL (8.4-25.7); Calc. Creatinine Clearance 100 mL/min (70-130); Calcium 8.1 mg/dL (7.8-10.44); Carbon Dioxide 30 mmol/L (23-31); Chloride 103 mmol/L (98-107); Estimated GFR-MDRD 56; Glucose 191 mg/dL (80-115); Potassium 4.2 mmol/L (3.5-5.1); Sodium 135 mmol/L (136-145)
[2019-11-01] MEDS: Insulin Regular 300 UNITS/3 ML VIAL SC PRN ×2 (16:49→21:20)
--- NOTE | 2019-11-01 18:15 | PDOC.CPN ---
- Subjective Date: 11/01/19 Time: 18:13 Interval history: Doing better. On the chair eating on my evaluation. He has walked with PT today and has been sitting all morning. - Review of Systems General: denies: fever/chills, weight/appetite/sleep changes, night sweats, fatigue Respiratory: reports: cough. denies: congestion, shortness of breath, exercise intolerance Cardiovascular: denies: chest pain, palpitation, edema, paroxysmal nocturnal dyspnea, orthopnea Gastrointestinal: denies: nausea, vomiting, diarrhea, constipation, abd pain, GI bleeding Musculoskeletal: denies: pain, tenderness, stiffness, swelling, arthritis/ arthralgias Neurological: denies: numbness, syncope, seizure, weakness - Objective Allergies/Adverse Reactions: Allergies Allergy/AdvReac Type Severity Reaction Status Date / Time Penicillins Allergy Verified 10/25/19 08:44 Visit Medications: Current Medications Al Hydroxide/Mg Hydroxide (Maalox) 30 ml PO Q4H PRN PRN Reason: Indigestion Albuterol/Ipratropium (Duoneb) 3 ml NEB [id number] PRN PRN Reason: SHORTNESS OF BREATH Aspirin (Aspirin) 325 mg PO DAILY [facility] Last Admin: 11/01/19 15:13 Dose: Not Given Bisacodyl (Dulcolax) 10 mg PO Q12H PRN PRN Reason: Constipation Bisacodyl (Dulcolax) 10 mg [place] Q12H PRN PRN Reason: Constipation Dextrose/Water (Dextrose 50%) 25 gm SLOW IVP PRN PRN PRN Reason: PER HYPOGLYCEMIC PROTOCOL Docusate Sodium (Colace) 100 mg PO BID [facility] Last Admin: 11/01/19 15:13 Dose: Not Given Famotidine (Pepcid) 20 mg SLOW IVP Q12HR [facility] Last Admin: 10/31/19 20:54 Dose: 20 mg Gabapentin (Neurontin) 300 mg PO BID [facility] Last Admin: 10/31/19 20:54 Dose: 300 mg Glucagon (Glucagon) 1 mg SC PRN PRN PRN Reason: PER HYPOGLYCEMIC PROTOCOL Guaifenesin/Dextromethorphan (Robitussin Dm) 15 ml PO Q4H PRN PRN Reason: Cough Hydralazine HCl (Apresoline) 10 mg SLOW IVP Q6H PRN PRN Reason: To Maintain SBP< 140mmHG Hydromorphone HCl (Dilaudid) 4 mg PO Q4H PRN PRN Reason: Moderate Pain (4-7) Hydromorphone HCl (Dilaudid) 8 mg PO Q4H PRN PRN Reason: Severe Pain (8-10) Norepinephrine Bitartrate (Levophed) 250 mls @ 0 mls/hr IVPB PRN PRN; Protocol PRN Reason: To maintain SBP > 90 mmHG Nicardipine HCl 25 mg/ Sodium (Chloride) 260 mls @ 0 mls/hr IVPB INF PRN; Protocol PRN Reason: To Maintain SBP< 140mmHG Nitroglycerin/Dextrose (Nitroglycerin 50 Mg/250 Ml Bot) 250 mls @ 0 mls/hr IVPB PRN PRN; Protocol PRN Reason: To Maintain SBP< 140mmHG Insulin Human Regular 100 (units/ Sodium Chloride) 101 mls @ 0 mls/hr IVPB INF ELISA; Protocol Dextrose/Water (D5w) 1,000 mls @ 0 mls/hr IV INF PRN PRN Reason: PRN HYPOGLYCEMIC PROTOCOL Acetaminophen 1,000 mg/ Device 100 mls @ 400 mls/hr IVPB Q6HR [facility] Stop: 11/02/19 12:01 Acetaminophen 1,000 mg/ Device 100 mls @ 400 mls/hr IVPB NOW [facility] Stop: 11/02/19 14:31 Last Admin: 11/01/19 15:14 Dose: 100 mls Insulin Human Regular (Humulin R) 0 units SC Q4H PRN; Protocol PRN Reason: POST OP SLIDING SCALE Last Admin: 11/01/19 16:49 Dose: 8 unit Morphine Sulfate (Morphine) 2 mg SLOW IVP Q15MIN PRN PRN Reason: Severe Pain (7-10) Ondansetron HCl (Zofran) 4 mg IVP Q6H PRN PRN Reason: Nausea/Vomiting Exenatide Microspheres [ Bydureon Bcise] 0 each SC Q7DAYS [facility] Potassium Chloride (Kcl) 20 meq IVPB PRN PRN PRN Reason: K level </= 4.0 Last Admin: 10/30/19 15:22 Dose: 20 meq Promethazine HCl (Phenergan) 6.25 mg IM Q4H PRN PRN Reason: Nausea/Vomiting Rosuvastatin Calcium (Crestor) 40 mg PO HS [facility] Last Admin: 10/31/19 20:54 Dose: 40 mg Sodium Chloride (Flush - Normal Saline) 10 ml IVF Q12HR ELISA Last Admin: 10/31/19 20:54 Dose: 10 ml Vital Signs & Weight: Vital Signs Pulse Pulse BP BP Pulse Ox Pulse Ox Pulse Ox 11/01/19 16:16 99 11/01/19 14:45 108 H 106 H 122/79 100/61 100 92 L 11/01/19 08:57 109 H 109 H 131/79 119/74 96 93 L Weight 277 lb 12.519 oz - Physical Exam General: alert & oriented x3 HEENT: mucus membranes moist, normocephaly Neck: supple neck Cardiac: regular rate and rhythm, no murmur Lungs: normal breath sounds Neuro: grossly intact Abdomen: active bowel sounds, soft, non-tender Extremities: 1+ LE edema Skin: clear Musculoskeletal: no pain - Labs Result Diagrams: 10/31/19 03:20 11/01/19 04:20 - Telemetry Sinus rhythms and dysrhythmias: sinus rhythm - Assessment/Plan Assessment/Plan: 1. Multivessel CAD. 2. S/P CABG x 4, AMBRIZ to LAD, SVG to OM2 sequential to OM3, SVG to RPDA. 3. Type 2 DM 4. HTN PLAN: - Aspirin/statin - Will start low dose Toprol XL - ACEI once BP allows - Advance PT as tolerated. - May transfer to telemetry unit.
[2019-11-01 18:27] LABS: %Eosinophils 0.8 % (0.0-10.0); %Lymphocytes 7.9 % (21.0-51.0); %Neutrophils 81.9 % (42.0-75.0); Hemoglobin 8.3 g/dL (14.0-18.0); Mean Corpuscular HGB CONC 31.8 g/dL (32.0-36.0); Mean Corpuscular Hemoglobin 26.9 pg (27.0-31.0); Mean Corpuscular Volume 84.6 fL (78.0-98.0); Platelet Count 114 thou/uL (130-400); RBC Distribution Width 15.8 % (11.5-14.5); White Blood Cell (WBC) Count 7.9 thou/uL (4.8-10.8)
[2019-11-01 18:28] LABS: #Eosinphils 0.1 thou/uL (0.0-0.7); #Lymphocytes 0.6 thou/uL (1.20-3.40); #Monocytes 0.7 thou/uL (0.11-0.59); #Neutrophils 6.5 thou/uL (1.40-6.50); %Basophils 0.6 % (0.0-1.0); Mean Platelet Volume 7.6 fL (7.4-10.4)
--- NOTE | 2019-11-01 20:15 | RAD ---
EXAM: CHEST ONE VIEW: 11/01/19 COMPARISON: 10/31/19 HISTORY: Status open heart surgery. FINDINGS: The exam is on the taken list and submitted for interpretation on 11/01/19 at 8:12 p.m. Redemonstration of sternotomy wires, vascular catheters and a left sided chest tube. Heart continues to be enlarged. There are bilateral perihilar opacities, similar to the previous examination. No def inite pneumothorax. IMPRESSION: Findings compatible with recent open heart surgery. POS: OFF
[2019-11-01] MEDS: Gabapentin 300 MG CAP PO SCH ×2 (20:47→22:39)
[2019-11-01] MEDS: Famotidine/PF 20 mg/2ml Vial SLOW IVP SCH ×2 (20:47→22:39)
[2019-11-01] MEDS: Acetaminophen 1,000 MG in Premix Bag 1 BAG IVPB SCH (20:48)
[2019-11-01] MEDS: Rosuvastatin 20 MG TAB PO SCH (20:49)
[2019-11-01] MEDS: HYDROmorphone 2 MG TAB PO PRN (20:49)
[2019-11-02] MEDS: Insulin Regular 300 UNITS/3 ML VIAL SC PRN ×5 (00:29→16:57)
[2019-11-02] MEDS: Acetaminophen 1,000 MG in Premix Bag 1 BAG IVPB SCH ×3 (00:56→11:45)
[2019-11-02 03:51] VITALS: BMI 39.9
[2019-11-02 04:41] LABS: Anion Gap 10 mmol/L (10-20); BUN (Urea Nitrogen) 24 mg/dL (8.4-25.7); Calc. Creatinine Clearance 94 mL/min (70-130); Calcium 8.1 mg/dL (7.8-10.44); Carbon Dioxide 29 mmol/L (23-31); Chloride 102 mmol/L (98-107); Estimated GFR-MDRD 53; Glucose 182 mg/dL (80-115); Potassium 4.4 mmol/L (3.5-5.1); Sodium 137 mmol/L (136-145)
[2019-11-02 04:45] LABS: #Eosinphils 0.3 thou/uL (0.0-0.7); #Lymphocytes 0.7 thou/uL (1.20-3.40); #Monocytes 0.6 thou/uL (0.11-0.59); #Neutrophils 4.5 thou/uL (1.40-6.50); %Basophils 0.3 % (0.0-1.0); %Eosinophils 4.8 % (0.0-10.0); %Lymphocytes 11.5 % (21.0-51.0); %Monocytes 9.9 % (0.0-10.0); %Neutrophils 73.4 % (42.0-75.0); Hemoglobin 7.9 g/dL (14.0-18.0); MDiff Complete? YES; Mean Corpuscular HGB CONC 32.1 g/dL (32.0-36.0); Mean Corpuscular Hemoglobin 27.3 pg (27.0-31.0); Mean Corpuscular Volume 85.1 fL (78.0-98.0); Mean Platelet Volume 8.8 fL (7.4-10.4); Ovalocytes SLIGHT = 2-5 cells (100X) (0-1/hpf); Platelet Count 82 thou/uL (130-400); Platelet Morphology Comment Appears Decreased; RBC Distribution Width 15.4 % (11.5-14.5); White Blood Cell (WBC) Count 6.2 thou/uL (4.8-10.8)
[2019-11-02] MEDS: Aspirin 325 MG TAB PO SCH (08:27)
[2019-11-02] MEDS: Famotidine/PF 20 mg/2ml Vial SLOW IVP SCH (08:27)
[2019-11-02] MEDS: Docusate 100 MG CAP PO SCH ×2 (08:27→20:58)
[2019-11-02] MEDS: Gabapentin 300 MG CAP PO SCH ×2 (08:28→20:58)
--- NOTE | 2019-11-02 08:52 | PRG ---
DATE OF SERVICE: 11/02/2019 SUBJECTIVE: A 64-year-old gentleman, who is better, less short of breath. OBJECTIVE: VITAL SIGNS: Temperature 99, saturations 100% on 3 L, blood pressure 112/70, and respiratory rate 18. CHEST: Decreased breath sounds, no wheezing. CARDIAC: Normal S1, S2. No gallops. ABDOMEN: No masses. LABORATORY DATA: Creatinine 1.3. White count 6000, H and H are 7 and 24, platelet count is low at 82. IMPRESSION: Status post coronary artery bypass grafting, thrombocytopenia, morbid obesity, probably has sleep apnea. PLAN: 1. He is going to be transferred to a monitored bed. 2. Consider outpatient sleep study when he is stable. 3. We will follow. Job ID: [id number]
--- NOTE | 2019-11-02 13:09 | PDOC.CPN ---
- Subjective Date: 11/02/19 Time: 13:07 Interval history: he is doing much better. Had his Chest tubes taken out this morning. - Review of Systems General: denies: fever/chills, weight/appetite/sleep changes, night sweats, fatigue Respiratory: reports: cough. denies: congestion, shortness of breath, exercise intolerance Cardiovascular: reports: chest pain. denies: palpitation, edema, paroxysmal nocturnal dyspnea, orthopnea Gastrointestinal: denies: nausea, vomiting, diarrhea, constipation, abd pain, GI bleeding Musculoskeletal: reports: pain. denies: tenderness, stiffness, swelling, arthritis/arthralgias Neurological: denies: numbness, syncope, seizure, weakness - Objective Allergies/Adverse Reactions: Allergies Allergy/AdvReac Type Severity Reaction Status Date / Time Penicillins Allergy Verified 10/25/19 08:44 Visit Medications: Current Medications Al Hydroxide/Mg Hydroxide (Maalox) 30 ml PO Q4H PRN PRN Reason: Indigestion Albuterol/Ipratropium (Duoneb) 3 ml NEB Q3ND-IB PRN PRN Reason: SHORTNESS OF BREATH Aspirin (Aspirin) 325 mg PO DAILY [facility] Last Admin: 11/02/19 08:27 Dose: 325 mg Bisacodyl (Dulcolax) 10 mg PO Q12H PRN PRN Reason: Constipation Bisacodyl (Dulcolax) 10 mg [place] Q12H PRN PRN Reason: Constipation Dextrose/Water (Dextrose 50%) 25 gm SLOW IVP PRN PRN PRN Reason: PER HYPOGLYCEMIC PROTOCOL Docusate Sodium (Colace) 100 mg PO BID [facility] Last Admin: 11/02/19 08:27 Dose: 100 mg Famotidine (Pepcid) 20 mg SLOW IVP Q12HR [facility] Last Admin: 11/02/19 08:27 Dose: 20 mg Gabapentin (Neurontin) 300 mg PO BID [facility] Last Admin: 11/02/19 08:28 Dose: 300 mg Glucagon (Glucagon) 1 mg SC PRN PRN PRN Reason: PER HYPOGLYCEMIC PROTOCOL Guaifenesin/Dextromethorphan (Robitussin Dm) 15 ml PO Q4H PRN PRN Reason: Cough Hydralazine HCl (Apresoline) 10 mg SLOW IVP Q6H PRN PRN Reason: To Maintain SBP< 140mmHG Hydromorphone HCl (Dilaudid) 4 mg PO Q4H PRN PRN Reason: Moderate Pain (4-7) Last Admin: 11/01/19 20:49 Dose: 4 mg Hydromorphone HCl (Dilaudid) 8 mg PO Q4H PRN PRN Reason: Severe Pain (8-10) Norepinephrine Bitartrate (Levophed) 250 mls @ 0 mls/hr IVPB PRN PRN; Protocol PRN Reason: To maintain SBP > 90 mmHG Nicardipine HCl 25 mg/ Sodium (Chloride) 260 mls @ 0 mls/hr IVPB INF PRN; Protocol PRN Reason: To Maintain SBP< 140mmHG Nitroglycerin/Dextrose (Nitroglycerin 50 Mg/250 Ml Bot) 250 mls @ 0 mls/hr IVPB PRN PRN; Protocol PRN Reason: To Maintain SBP< 140mmHG Insulin Human Regular 100 (units/ Sodium Chloride) 101 mls @ 0 mls/hr IVPB INF ELISA; Protocol Dextrose/Water (D5w) 1,000 mls @ 0 mls/hr IV INF PRN PRN Reason: PRN HYPOGLYCEMIC PROTOCOL Insulin Human Regular (Humulin R) 0 units SC Q4H PRN; Protocol PRN Reason: POST OP SLIDING SCALE Last Admin: 11/02/19 11:45 Dose: 6 unit Metoprolol Succinate (Toprol Xl) 25 mg PO DAILY [facility] Last Admin: 11/02/19 08:28 Dose: 25 mg Morphine Sulfate (Morphine) 2 mg SLOW IVP Q15MIN PRN PRN Reason: Severe Pain (7-10) Ondansetron HCl (Zofran) 4 mg IVP Q6H PRN PRN Reason: Nausea/Vomiting Exenatide Microspheres [ Bydureon Bcise] 0 each SC Q7DAYS [facility] Potassium Chloride (Kcl) 20 meq IVPB PRN PRN PRN Reason: K level </= 4.0 Last Admin: 10/30/19 15:22 Dose: 20 meq Promethazine HCl (Phenergan) 6.25 mg IM Q4H PRN PRN Reason: Nausea/Vomiting Rosuvastatin Calcium (Crestor) 40 mg PO HS [facility] Last Admin: 11/01/19 20:49 Dose: 40 mg Sodium Chloride (Flush - Normal Saline) 10 ml IVF Q12HR [facility] Last Admin: 11/02/19 08:28 Dose: 10 ml Vital Signs & Weight: Vital Signs Temp Pulse Pulse BP BP Pulse Ox Pulse Ox 11/02/19 12:00 98.5 F 11/02/19 09:14 100 91 119/69 105/68 97 11/02/19 08:17 100 11/02/19 08:00 99.0 F 99 11/02/19 03:00 98 F Pulse Ox 11/02/19 12:00 11/02/19 09:14 100 11/02/19 08:17 11/02/19 08:00 11/02/19 03:00 Weight 269 lb 10.005 oz - Physical Exam General: alert & oriented x3 HEENT: mucus membranes moist Neck: supple neck, midline trachea Cardiac: regular rate and rhythm Lungs: clear to auscultation Neuro: grossly intact Abdomen: active bowel sounds, soft, non-tender Extremities: no edema Skin: clear Musculoskeletal: no pain - Labs Result Diagrams: 11/02/19 04:11 11/02/19 04:11 - Telemetry Sinus rhythms and dysrhythmias: sinus rhythm - Assessment/Plan Assessment/Plan: 1. Multivessel CAD. 2. S/P CABG x 4, AMBRIZ to LAD, SVG to OM2 sequential to OM3, SVG to RPDA. 3. Type 2 DM 4. HTN PLAN: - Aspirin/statin - Will start low dose ACEI. Continue BB. - Advance PT as tolerated.
[2019-11-02] MEDS ORDERED: Nitroglycerin 0.4 MG TAB (25 Tab Bottle) SL PRN (19:15)
[2019-11-02] MEDS ORDERED: Mag-Al 1200 mg/1200 mg/30 ML UDCUP PO PRN (19:15)
[2019-11-02] MEDS ORDERED: Zolpidem Tartrate 5 MG TAB PO PRN (19:15)
[2019-11-02] MEDS ORDERED: Bisacodyl 10 MG SUPP PR PRN (19:15)
[2019-11-02] MEDS ORDERED: Dextrose 50% Abboject 50 ML SYRINGE SLOW IVP PRN (19:15)
[2019-11-02] MEDS ORDERED: Artificial Tears 18 DROP/0.9 ML EA EYE PRN (19:15)
[2019-11-02] MEDS ORDERED: Dextrose 5% in Water 1,000 ML IV PRN (19:15)
[2019-11-02] MEDS ORDERED: Guaifenesin DM 100-10/5 ML UDCUP PO PRN (19:15)
[2019-11-02] MEDS ORDERED: Bisacodyl 5 MG TAB PO PRN (19:15)
[2019-11-02] MEDS ORDERED: diphenhydrAMINE 25 MG CAP PO PRN (19:15)
[2019-11-02] MEDS ORDERED: Mineral Oil ENEMA PR PRN (19:15)
[2019-11-02] MEDS ORDERED: Furosemide 40 MG TAB PO SCH (19:30)
[2019-11-02] MEDS ORDERED: Iron Polysaccharides Complex 150 MG CAP PO SCH (19:30)
[2019-11-02] MEDS ORDERED: Aspirin 325 mg Enteric Coated Tablet PO SCH (19:30)
[2019-11-02] MEDS ORDERED: Metolazone 5 MG TAB PO SCH (19:30)
[2019-11-02] MEDS: Rosuvastatin 20 MG TAB PO SCH (20:58)
--- NOTE | 2019-11-02 21:15 | EKG ---
Test Reason : POST CABG Blood Pressure : / mmHG Vent. Rate : 082 BPM Atrial Rate : 082 BPM P-R Int : 250 ms QRS Dur : 090 ms QT Int : 370 ms P-R-T Axes : 068 012 040 degrees QTc Int : 432 ms Sinus rhythm with 1st degree A-V block Otherwise normal ECG When compared with ECG of 25-OCT-2019 13:38, No significant change was found Confirmed by Chano MENDEZ ([id number]) on 11/02/2019 9:15:01 PM Referred By: DALILA Confirmed By:Chano MENDEZ
--- NOTE | 2019-11-02 21:19 | EKG ---
Test Reason : RHYTHM CHANGE Blood Pressure : / mmHG Vent. Rate : 091 BPM Atrial Rate : 091 BPM P-R Int : 230 ms QRS Dur : 084 ms QT Int : 340 ms P-R-T Axes : 061 000 003 degrees QTc Int : 418 ms Sinus rhythm with 1st degree A-V block Inferior infarct , age undetermined Abnormal ECG When compared with ECG of 30-OCT-2019 14:37, (Unconfirmed) No significant change was found Confirmed by Chano MENDEZ ([id number]) on 11/02/2019 9:19:38 PM Referred By: Roger CONNER Confirmed By:Chano MENDEZ
[2019-11-02] MEDS: HYDROmorphone 2 MG TAB PO PRN (23:41)
[2019-11-03 04:26] LABS: #Eosinphils 0.2 thou/uL (0.0-0.7); #Lymphocytes 0.7 thou/uL (1.20-3.40); #Monocytes 0.5 thou/uL (0.11-0.59); #Neutrophils 3.9 thou/uL (1.40-6.50); %Basophils 0.7 % (0.0-1.0); %Eosinophils 3.1 % (0.0-10.0); %Lymphocytes 12.5 % (21.0-51.0); %Monocytes 9.6 % (0.0-10.0); %Neutrophils 74.1 % (42.0-75.0); Hemoglobin 7.6 g/dL (14.0-18.0); Mean Corpuscular HGB CONC 32.4 g/dL (32.0-36.0); Mean Corpuscular Hemoglobin 27.4 pg (27.0-31.0); Mean Corpuscular Volume 84.5 fL (78.0-98.0); Mean Platelet Volume 8.1 fL (7.4-10.4); Platelet Count 155 thou/uL (130-400); RBC Distribution Width 15.3 % (11.5-14.5); Red Blood Cell (RBC) Count 2.77 mill/uL (4.70-6.10); White Blood Cell (WBC) Count 5.2 thou/uL (4.8-10.8)
[2019-11-03 04:45] LABS: Anion Gap 11 mmol/L (10-20); BUN (Urea Nitrogen) 25 mg/dL (8.4-25.7); Calc. Creatinine Clearance 82 mL/min (70-130); Calcium 8.5 mg/dL (7.8-10.44); Carbon Dioxide 28 mmol/L (23-31); Chloride 101 mmol/L (98-107); Estimated GFR-MDRD 46; Glucose 260 mg/dL (80-115); Potassium 4.5 mmol/L (3.5-5.1); Sodium 135 mmol/L (136-145)
--- NOTE | 2019-11-03 07:54 | RAD ---
Chest AP view INDICATION: Status post CABG COMPARISON: November 01, 2019 FINDINGS: Lungs:Perihilar edema has improved. Cardiac silhouette:Cardiomegaly persists Pulmonary vasculature:Vascular congestion is improved Pleural spaces:Small pleural effusions have slightly diminished. Tiny pleural effusions remain bilate rally. Upper abdomen:No abnormality seen. Osseous structures: Midline sternotomy changes are stable Additional findings:Left-sided thoracostomy tube has been removed. The right subclavian central venou s catheter projecting into the left subclavian vein is stable. IMPRESSION: Improving volume overload or CHF. Removal of left-sided thoracostomy tube. No pneumothora x. Stable right subclavian central venous catheter.
--- NOTE | 2019-11-03 09:07 | PRG ---
DATE OF SERVICE: 11/03/2019 SUBJECTIVE: Warren Gu is status post CABG. He is weak and slightly short of breath. OBJECTIVE: VITAL SIGNS: His temperature is 99, pulse 102, respiratory rate 18, saturations 100% on 2L, and blood pressure 144/78. CHEST: No wheezing. Minimal crackles. CARDIAC: Normal S1 and S2. No gallops. ABDOMEN: No masses. LABORATORY DATA AND IMAGING STUDIES: Chest x-ray still shows cardiomegaly, questionable left-sided effusion. Lab shows azotemia. ASSESSMENT: 1. Respiratory failure. 2. Morbid obesity, probably hypoventilation syndrome. 3. Coronary artery bypass graft. 4. Renal failure. PLAN: Continue PT, neb treatments, supportive care. We will follow. Job ID: [id number]
[2019-11-03] MEDS: Insulin Regular 300 UNITS/3 ML VIAL SC PRN ×4 (09:18→20:52)
[2019-11-03] MEDS: Docusate 100 MG CAP PO SCH ×2 (09:19→20:50)
[2019-11-03] MEDS: Furosemide 40 MG TAB PO SCH ×2 (09:19→13:34)
[2019-11-03] MEDS: Aspirin 325 mg Enteric Coated Tablet PO SCH (09:19)
[2019-11-03] MEDS: Lisinopril 2.5 MG TAB PO SCH (09:19)
[2019-11-03] MEDS: Iron Polysaccharides Complex 150 MG CAP PO SCH ×2 (09:20→20:50)
[2019-11-03] MEDS: Gabapentin 300 MG CAP PO SCH ×2 (09:20→20:50)
[2019-11-03] MEDS: HYDROmorphone 2 MG TAB PO PRN (10:20)
[2019-11-03] MEDS ORDERED: Metolazone 5 MG TAB PO SCH (10:45)
[2019-11-03] MEDS ORDERED: HYDROcodone/Acetaminophen 5/325 mg Tablet PO PRN (10:45)
[2019-11-03] MEDS ORDERED: Pioglitazone HCl 15 MG TAB PO SCH (11:00)
[2019-11-03] MEDS: Amiodarone 450 MG, Admixture Fee 1 EACH in Dextrose 5% in Water 250 ML IVPB SCH ×2 (15:49→23:54)
--- NOTE | 2019-11-03 16:42 | PDOC.CPN ---
- Subjective Date: 11/03/19 Time: 16:38 Interval history: He went into afib RVR earlier today. Amiodarone drip was started and within minutes of drip he converted to sinus. - Review of Systems General: denies: fever/chills, weight/appetite/sleep changes, night sweats, fatigue Respiratory: denies: cough, congestion, shortness of breath, exercise intolerance Cardiovascular: denies: chest pain, palpitation, edema, paroxysmal nocturnal dyspnea, orthopnea Gastrointestinal: denies: nausea, vomiting, diarrhea, constipation, abd pain, GI bleeding Musculoskeletal: denies: pain, tenderness, stiffness, swelling, arthritis/ arthralgias Neurological: denies: numbness, syncope, seizure, weakness - Objective Allergies/Adverse Reactions: Allergies Allergy/AdvReac Type Severity Reaction Status Date / Time Penicillins Allergy Verified 10/25/19 08:44 Visit Medications: Current Medications Hydrocodone Bitart/Acetaminophen ([place] 5/325) 1 tab PO Q4H PRN PRN Reason: Moderate Pain (4-6) Hydrocodone Bitart/Acetaminophen ([place] 5/325) 2 tab PO Q4H PRN PRN Reason: Moderate to Severe Pain (6-10) Al Hydroxide/Mg Hydroxide (Maalox) 30 ml PO Q4H PRN PRN Reason: Indigestion Albuterol/Ipratropium (Duoneb) 3 ml NEB [id number] PRN PRN Reason: SHORTNESS OF BREATH Artificial Tears (Tears Naturale) 0 drop EA EYE PRN PRN PRN Reason: Dry Eyes Aspirin (Ecotrin) 325 mg PO DAILY [facility] Last Admin: 11/03/19 09:19 Dose: 325 mg Bisacodyl (Dulcolax) 10 mg PO Q12H PRN PRN Reason: Constipation Bisacodyl (Dulcolax) 10 mg LA Q12H PRN PRN Reason: Constipation Dextrose/Water (Dextrose 50%) 25 gm SLOW IVP PRN PRN PRN Reason: Hypoglycemia Diphenhydramine HCl (Benadryl) 25 mg PO Q6H PRN PRN Reason: Itching & Insomnia or Sukhwinder Janak Docusate Sodium (Colace) 100 mg PO BID [facility] Last Admin: 11/03/19 09:19 Dose: 100 mg Furosemide (Lasix) 40 mg PO 0900,1400 [facility] Last Admin: 11/03/19 13:34 Dose: 40 mg Gabapentin (Neurontin) 300 mg PO BID [facility] Last Admin: 11/03/19 09:20 Dose: 300 mg Glipizide (Glucotrol Xl) 10 mg PO QAM-WM [facility] Glucagon (Glucagon) 1 mg IM PRN PRN PRN Reason: Hypoglycemia Guaifenesin/Dextromethorphan (Robitussin Dm) 15 ml PO Q4H PRN PRN Reason: Cough Dextrose/Water (D5w) 1,000 mls @ 0 mls/hr IV .Q0M PRN PRN Reason: Hypoglycemia Amiodarone HCl 450 mg/Miscellaneous Medication 1 each/ Dextrose/Water 259 mls @ 0 mls/hr IVPB INF [facility]; Protocol Last Admin: 11/03/19 15:49 Dose: 259 mls Insulin Human Regular (Humulin R) 0 units SC .AGGRESSIVE SLIDING PRN; Protocol PRN Reason: AGGRESSIVE SLIDING SCALE Last Admin: 11/03/19 13:34 Dose: 11 unit Lisinopril (Zestril) 2.5 mg PO DAILY [facility] Last Admin: 11/03/19 09:19 Dose: 2.5 mg Metoprolol Succinate (Toprol Xl) 25 mg PO DAILY [facility] Last Admin: 11/03/19 09:20 Dose: 25 mg Mineral Oil (Fleet Mineral Oil) 133 ml LA DAILYPRN PRN PRN Reason: Constipation Nitroglycerin (Nitrostat) 0.4 mg SL Q5MIN PRN PRN Reason: Chest Pain Ondansetron HCl (Zofran) 4 mg IVP Q6H PRN PRN Reason: Nausea/Vomiting Exenatide Microspheres [ Bydureon Bcise] 0 each SC Q7DAYS [facility] Pioglitazone HCl (Actos) 15 mg PO DAILY [facility] Polysaccharide Iron Complex (Niferex) 150 mg PO BID [facility] Last Admin: 11/03/19 09:20 Dose: 150 mg Rosuvastatin Calcium (Crestor) 40 mg PO HS [facility] Last Admin: 11/02/19 20:58 Dose: 40 mg Sodium Chloride (Flush - Normal Saline) 10 ml IVF Q12HR [facility] Last Admin: 11/03/19 09:20 Dose: 10 ml Zolpidem Tartrate (Ambien) 5 mg PO HSPRN PRN PRN Reason: Insomnia Vital Signs & Weight: Vital Signs Temp Pulse Pulse Pulse Resp BP BP 11/03/19 15:43 98.6 F 75 18 11/03/19 11:30 98.6 F 96 18 11/03/19 10:20 95 94 118/67 139/69 11/03/19 07:26 99.0 F 102 H 18 BP BP Pulse Ox Pulse Ox Pulse Ox 11/03/19 15:43 166/95 H 95 11/03/19 11:30 111/66 95 11/03/19 10:20 95 100 11/03/19 07:26 144/78 H 100 Weight 280 lb - Physical Exam General: alert & oriented x3 HEENT: mucus membranes moist Neck: supple neck, midline trachea Cardiac: no murmur, irregularly regular Lungs: normal breath sounds Neuro: grossly intact Abdomen: active bowel sounds, soft, non-tender Extremities: no edema Skin: clear Musculoskeletal: no pain - Labs Result Diagrams: 11/03/19 04:06 11/03/19 04:06 - Telemetry Sinus rhythms and dysrhythmias: sinus rhythm Supraventricular conduction: atrial fibrillation - Assessment/Plan Assessment/Plan: 1. Multivessel CAD. 2. S/P CABG x 4, AMBRIZ to LAD, SVG to OM2 sequential to OM3, SVG to RPDA. 3. Type 2 DM 4. HTN 5. Post op Afib PLAN: - Aspirin/statin - Continue BB and ACEI. - Advance PT as tolerated. - Continue amiodarone drip for 24 hrs of protocol and then PO amio load.
[2019-11-03] MEDS: HYDROcodone/Acetaminophen 5/325 mg Tablet PO PRN ×2 (17:56→23:39)
[2019-11-03] MEDS: Rosuvastatin 20 MG TAB PO SCH (20:50)
[2019-11-04 04:41] LABS: #Eosinphils 0.3 thou/uL (0.0-0.7); #Lymphocytes 0.7 thou/uL (1.20-3.40); #Monocytes 0.6 thou/uL (0.11-0.59); #Neutrophils 3.1 thou/uL (1.40-6.50); %Basophils 0.3 % (0.0-1.0); %Eosinophils 6.9 % (0.0-10.0); %Lymphocytes 14.6 % (21.0-51.0); %Neutrophils 66.3 % (42.0-75.0); Hemoglobin 7.7 g/dL (14.0-18.0); Mean Corpuscular HGB CONC 32.4 g/dL (32.0-36.0); Mean Corpuscular Hemoglobin 27.4 pg (27.0-31.0); Mean Corpuscular Volume 84.4 fL (78.0-98.0); Mean Platelet Volume 7.9 fL (7.4-10.4); Platelet Count 195 thou/uL (130-400); RBC Distribution Width 15.4 % (11.5-14.5); Red Blood Cell (RBC) Count 2.83 mill/uL (4.70-6.10); White Blood Cell (WBC) Count 4.7 thou/uL (4.8-10.8)
[2019-11-04 04:55] LABS: Anion Gap 11 mmol/L (10-20); BUN (Urea Nitrogen) 26 mg/dL (8.4-25.7); Calc. Creatinine Clearance 80 mL/min (70-130); Calcium 9.2 mg/dL (7.8-10.44); Carbon Dioxide 31 mmol/L (23-31); Chloride 99 mmol/L (98-107); Estimated GFR-MDRD 43; Glucose 250 mg/dL (80-115); Sodium 137 mmol/L (136-145)
[2019-11-04] MEDS: Insulin Regular 300 UNITS/3 ML VIAL SC PRN ×4 (09:19→20:57)
[2019-11-04] MEDS: Lisinopril 2.5 MG TAB PO SCH (09:21)
[2019-11-04] MEDS: Docusate 100 MG CAP PO SCH ×2 (09:21→20:55)
[2019-11-04] MEDS: Gabapentin 300 MG CAP PO SCH ×2 (09:21→20:56)
[2019-11-04] MEDS: Aspirin 325 mg Enteric Coated Tablet PO SCH (09:21)
[2019-11-04] MEDS: Pioglitazone HCl 15 MG TAB PO SCH (09:21)
[2019-11-04] MEDS: Iron Polysaccharides Complex 150 MG CAP PO SCH ×2 (09:21→20:55)
[2019-11-04] MEDS: Furosemide 40 MG TAB PO SCH ×2 (09:21→15:48)
[2019-11-04] MEDS: Amiodarone 200 MG TAB PO SCH ×2 (09:22→20:55)
[2019-11-04] MEDS ORDERED: Metolazone 5 MG TAB PO SCH (10:30)
[2019-11-04] MEDS: HYDROcodone/Acetaminophen 5/325 mg Tablet PO PRN ×2 (11:18→17:12)
--- NOTE | 2019-11-04 18:47 | PRG ---
DATE OF SERVICE: 11/04/2019 SERVICE: Pulmonary Medicine. INTERVAL HISTORY: The patient is doing really well from respiratory standpoint. He is coughing a little bit, but not bringing up any phlegm. He had a left upper quadrant discomfort associated with a pulling sensation. It was a 5/10 pain. It happened when he was mobile for the first time. He was in the shower. He got pain medications, completely resolved at this point. He denies any other acute symptoms. PHYSICAL EXAMINATION: VITAL SIGNS: Afebrile, pulse 85, blood pressure 117/68, respirations 18, saturation 93%, and currently on 2 L nasal cannula. GENERAL: The patient is awake and alert, in no apparent distress. LUNGS: Very good air entry. Dependent crackles are minimal. No prolonged expiratory phase. Wheezing is present. HEART: Normal rate and regular. ABDOMEN: Soft. Distended. Bowel sounds are present. There is no rebound or guarding present. With deep palpation in left upper quadrant region, he does not have any significant discomfort there. MUSCULOSKELETAL: No cyanosis or clubbing. There is 2+ pitting in the bilateral lower extremities. NEUROLOGIC: Grossly nonfocal. LABORATORY DATA: WBC 4.7, hemoglobin 7.7 and roughly stable, platelets 195,000 and beautifully rebounding. INR 1.2. PH 7.36 and pCO2 of 40. Creatinine 1.63 and gently up trending. Bicarb is gently climbing. Basic metabolic profile is otherwise unremarkable. ASSESSMENT: 1. Acute hypoxic respiratory failure. 2. Coronary artery disease, status post coronary artery bypass graft, postop day #5. 3. Morbid obesity. 4. Obstructive sleep apnea, suspected. DISCUSSION AND PLAN: The patient is doing really well. We will continue our mobilization efforts through time. He remains a touch volume overloaded. We will continue to diurese him down to euvolemia. Pulmonary will continue to follow intermittently while the patient remains inhouse. On discharge from the hospital, he may be well served by pursuing a polysomnogram. Job ID: [id number]
[2019-11-04] MEDS: Rosuvastatin 20 MG TAB PO SCH (20:56)
[2019-11-05] MEDS: HYDROcodone/Acetaminophen 5/325 mg Tablet PO PRN (04:13)
[2019-11-05 04:38] LABS: #Eosinphils 0.4 thou/uL (0.0-0.7); #Lymphocytes 0.9 thou/uL (1.20-3.40); #Monocytes 0.6 thou/uL (0.11-0.59); #Neutrophils 3.4 thou/uL (1.40-6.50); %Basophils 0.4 % (0.0-1.0); %Eosinophils 7.3 % (0.0-10.0); %Lymphocytes 16.6 % (21.0-51.0); %Monocytes 11.4 % (0.0-10.0); %Neutrophils 64.2 % (42.0-75.0); Mean Corpuscular HGB CONC 31.7 g/dL (32.0-36.0); Mean Corpuscular Hemoglobin 26.7 pg (27.0-31.0); Mean Corpuscular Volume 84.1 fL (78.0-98.0); Mean Platelet Volume 7.6 fL (7.4-10.4); Platelet Count 216 thou/uL (130-400); RBC Distribution Width 15.2 % (11.5-14.5); Red Blood Cell (RBC) Count 2.98 mill/uL (4.70-6.10); White Blood Cell (WBC) Count 5.3 thou/uL (4.8-10.8)
[2019-11-05 05:01] LABS: Anion Gap 12 mmol/L (10-20); BUN (Urea Nitrogen) 26 mg/dL (8.4-25.7); Calc. Creatinine Clearance 82 mL/min (70-130); Calcium 9.5 mg/dL (7.8-10.44); Carbon Dioxide 35 mmol/L (23-31); Chloride 96 mmol/L (98-107); Estimated GFR-MDRD 44; Glucose 196 mg/dL (80-115); Potassium 3.8 mmol/L (3.5-5.1); Sodium 139 mmol/L (136-145)
[2019-11-05] MEDS: Insulin Regular 300 UNITS/3 ML VIAL SC PRN ×4 (10:05→21:41)
[2019-11-05] MEDS: Gabapentin 300 MG CAP PO SCH ×2 (10:17→21:45)
[2019-11-05] MEDS: Lisinopril 2.5 MG TAB PO SCH (10:17)
[2019-11-05] MEDS: Pioglitazone HCl 15 MG TAB PO SCH (10:18)
[2019-11-05] MEDS: Furosemide 40 MG TAB PO SCH ×2 (10:18→14:03)
[2019-11-05] MEDS: Amiodarone 200 MG TAB PO SCH ×2 (10:18→21:45)
[2019-11-05] MEDS: Aspirin 325 mg Enteric Coated Tablet PO SCH (10:18)
[2019-11-05] MEDS: Docusate 100 MG CAP PO SCH ×2 (10:19→21:45)
[2019-11-05] MEDS: Iron Polysaccharides Complex 150 MG CAP PO SCH ×2 (10:19→21:45)
[2019-11-05] MEDS ORDERED: Insulin Glargine 15 UNITS in Pre-Filled Syringe 1 EACH SC SCH (21:00)
[2019-11-05] MEDS: Rosuvastatin 20 MG TAB PO SCH (21:45)
[2019-11-06 04:51] LABS: #Eosinphils 0.4 thou/uL (0.0-0.7); %Basophils 0.3 % (0.0-1.0); Hemoglobin 7.8 g/dL (14.0-18.0); Mean Platelet Volume 7.5 fL (7.4-10.4)
[2019-11-06 05:10] LABS: #Monocytes 0.6 thou/uL (0.11-0.59); #Neutrophils 3.5 thou/uL (1.40-6.50); %Eosinophils 7.4 % (0.0-10.0); %Lymphocytes 17.8 % (21.0-51.0); %Monocytes 11.5 % (0.0-10.0); Mean Corpuscular HGB CONC 32.1 g/dL (32.0-36.0); Mean Corpuscular Hemoglobin 26.6 pg (27.0-31.0); Mean Corpuscular Volume 82.7 fL (78.0-98.0); Platelet Count 237 thou/uL (130-400); RBC Distribution Width 15.7 % (11.5-14.5); Red Blood Cell (RBC) Count 2.94 mill/uL (4.70-6.10); White Blood Cell (WBC) Count 5.5 thou/uL (4.8-10.8)
[2019-11-06 05:25] LABS: Anion Gap 12 mmol/L (10-20); BUN (Urea Nitrogen) 27 mg/dL (8.4-25.7); Calc. Creatinine Clearance 77 mL/min (70-130); Calcium 9.7 mg/dL (7.8-10.44); Carbon Dioxide 36 mmol/L (23-31); Chloride 95 mmol/L (98-107); Estimated GFR-MDRD 41; Glucose 179 mg/dL (80-115); Potassium 3.5 mmol/L (3.5-5.1); Sodium 139 mmol/L (136-145)
[2019-11-06] MEDS: Aspirin 325 mg Enteric Coated Tablet PO SCH (09:40)
[2019-11-06] MEDS: Docusate 100 MG CAP PO SCH (09:40)
[2019-11-06] MEDS: Furosemide 40 MG TAB PO SCH ×2 (09:40→15:07)
[2019-11-06] MEDS: Amiodarone 200 MG TAB PO SCH (09:40)
[2019-11-06] MEDS: Gabapentin 300 MG CAP PO SCH (09:41)
[2019-11-06] MEDS: Lisinopril 2.5 MG TAB PO SCH (09:41)
[2019-11-06] MEDS: Iron Polysaccharides Complex 150 MG CAP PO SCH (09:41)
[2019-11-06] MEDS: Pioglitazone HCl 15 MG TAB PO SCH (09:42)
--- NOTE | 2019-11-06 09:56 | PRG ---
DATE OF SERVICE: 11/06/2019 SUBJECTIVE: He is better, he is eager to go home. OBJECTIVE: VITAL SIGNS: Temperature 98, pulse 91, respirations 17, sats 92 on 1 L, blood [id number] CHEST: Decreased breath sounds. No wheezing. CARDIAC: Normal S1 and S2. No gallops. ABDOMEN: No masses. LABORATORY DATA: Creatinine 1.6. White count 5000. IMPRESSION: 1. Status post coronary artery bypass graft. 2. Encephalopathy. 3. Respiratory failure. 4. Morbid obesity. 5. Probably sleep apnea. PLAN: PT supportive care. Outpatient sleep study. Job ID: [id number] MTDD
[2019-11-06 11:55] VITALS: TEMP 98.8
[2019-11-06 13:47] VITALS: BP 107/57
--- NOTE | 2019-11-06 17:35 | PDOC.CPN ---
- Subjective Date: 11/06/19 Time: 13:30 Interval history: Having BM's normally. Working with PT without issues. - Review of Systems General: denies: fever/chills, weight/appetite/sleep changes, night sweats, fatigue Respiratory: denies: cough, congestion, shortness of breath, exercise intolerance Cardiovascular: denies: chest pain, palpitation, edema, paroxysmal nocturnal dyspnea, orthopnea Gastrointestinal: denies: nausea, vomiting, diarrhea, constipation, abd pain, GI bleeding Musculoskeletal: denies: pain, tenderness, stiffness, swelling, arthritis/ arthralgias Neurological: denies: numbness, syncope, seizure, weakness - Objective Allergies/Adverse Reactions: Allergies Allergy/AdvReac Type Severity Reaction Status Date / Time Penicillins Allergy Verified 10/25/19 08:44 Vital Signs & Weight: Vital Signs Temp Pulse Pulse Pulse Resp BP BP 11/06/19 13:45 88 18 11/06/19 11:52 98.8 F 89 17 11/06/19 10:34 92 11/06/19 09:41 95 120/59 L 11/06/19 09:08 95 96 120/59 L 11/06/19 08:31 98.1 F 91 17 BP BP BP Pulse Ox Pulse Ox 11/06/19 13:45 107/57 L 93 L 11/06/19 11:52 109/56 L 95 11/06/19 10:34 115/59 L 11/06/19 09:41 11/06/19 09:08 123/64 95 11/06/19 08:31 132/66 92 L Weight 277 lb 6.4 oz - Physical Exam General: alert & oriented x3 HEENT: mucus membranes moist Neck: supple neck Cardiac: regular rate and rhythm Lungs: clear to auscultation Neuro: grossly intact Abdomen: active bowel sounds Extremities: no edema Skin: clear Musculoskeletal: no pain - Labs Result Diagrams: 11/06/19 04:22 11/06/19 04:22 - Telemetry Sinus rhythms and dysrhythmias: sinus rhythm - Assessment/Plan Assessment/Plan: 1. Multivessel CAD. 2. S/P CABG x 4, AMBRIZ to LAD, SVG to OM2 sequential to OM3, SVG to RPDA. 3. Type 2 DM 4. HTN 5. Post op Afib PLAN: - Aspirin/statin - Continue BB and ACEI. - PT as tolerated. - PO amio load. - May discharge any time form cardiac perspective. - Follow up in the office in 2 to 4 weeks.
--- NOTE | 2019-11-06 22:45 | DIS ---
DATE OF ADMISSION: 10/30/2019 DATE OF DISCHARGE: 11/06/2019 PRINCIPAL DIAGNOSIS: Left main coronary artery disease. PROCEDURES PERFORMED: Coronary artery bypass grafting x4, left internal mammary artery to the distal LAD, reverse greater saphenous vein graft from aorta to the second obtuse marginal from the OM2 graft to the OM1 and from the aorta to the PDA, 10/30/2019. HISTORY OF PRESENT ILLNESS AND HOSPITAL COURSE: The patient is a 64-year-old diabetic man with known coronary artery disease, having undergone two previous stenting procedures following myocardial infarctions. A screening stress test was abnormal showing reversible ischemia. Cardiac catheterization demonstrated left main coronary disease. He was electively admitted off Plavix for surgical revascularization. Medically, his biggest issue of note was some transient atrial fibrillation that was easily brought under control with amiodarone and the need for diuresis in order to get his chest tubes out. Otherwise, he was variably cooperative with his own care, initially being aggressively uncooperative and disagreeable. He has been variable in his cooperation with care and reports, have varied his mobilization. I have personally seen him walking in the carballo well and on the morning of discharge, his very first words to me were to express desire to go home. Yesterday, Physical Therapy felt that he was doing well enough that services were no longer beneficial. Today, Occupational Therapy said that he could not even get out of bed in spite of the fact that he was obviously in a chair and not in bed. Medically, the patient seems to be doing well and the biggest issue simply has to do with his willingness to mobilize. He is being sent home now to resume his home medication with the exception of his Lasix that has been increased from 20 mg once a day to a weeks worth of 40 mg twice a day. He has been started on iron for blood loss anemia. His lisinopril has been changed to 2.5 mg a day. Job ID: [id number]
== END 2019-11-06 14:06 | disposition home or self-care (01) | DRG 235 ==
LOC: SURG A 06:17 → CCU 11:34 → EDSTATUS 14:11 → 2NO 11-02 15:59
PROVIDERS: ADMIT Thoracic Surgery (Cardiothoracic Vascular Surgery); ATTEND Thoracic Surgery (Cardiothoracic Vascular Surgery)
PROC: 02100Z9 Bypass Coronary Artery, One Artery from Left Internal Mammary, Open Approach (ICD-10-PCS; principal; 2019-10-30)
PROC: 021209W Bypass Coronary Artery, Three Arteries from Aorta with Autologous Venous Tissue, Open Approach (ICD-10-PCS; 2019-10-30)
PROC: 06BQ0ZZ Excision of Left Saphenous Vein, Open Approach (ICD-10-PCS; 2019-10-30)
PROC: 5A1221Z Performance of Cardiac Output, Continuous (ICD-10-PCS; 2019-10-30)
PROC: 04HK33Z Insertion of Infusion Device into Right Femoral Artery, Percutaneous Approach (ICD-10-PCS; 2019-10-30)
DX: I25.10 Atherosclerotic heart disease of native coronary artery without angina pectoris (principal); J96.01 Acute respiratory failure with hypoxia; Z68.41 Body mass index [BMI] 40.0-44.9, adult; E66.2 Morbid (severe) obesity with alveolar hypoventilation; I97.190 Other postprocedural cardiac functional disturbances following cardiac surgery; G93.40 Encephalopathy, unspecified; E78.5 Hyperlipidemia, unspecified; E11.9 Type 2 diabetes mellitus without complications; I10 Essential (primary) hypertension; Z79.02 Long term (current) use of antithrombotics/antiplatelets; Z79.84 Long term (current) use of oral hypoglycemic drugs; Z87.891 Personal history of nicotine dependence; G47.00 Insomnia, unspecified; Z88.0 Allergy status to penicillin; N19 Unspecified kidney failure
CPT/HCPCS: 36415; 36416; 36430; 71045; 80048; 82805; 85025; 85610; 85730; 86850; 86900; 86901; 93005; 93010; 93798; 94002; 94150; C1769; J0131; J0282; J1642; J1644; J1815; J1940; J2001; J2250; J2405; J2440; J2704; J2720; J3010; J3370; J3475; J3480; J3490; J7070; P9045; Q0162; S0017; S0028

== ENCOUNTER 2019-11-13 13:12 | Observation (INO) | payer MEDICARE ==
[2019-11-13] MEDS ORDERED: Ondansetron PF 4 MG/2 ML Vial ONE (14:00)
[2019-11-13 14:16] LABS: #Eosinphils 0.2 thou/uL (0.0-0.7); #Monocytes 0.5 thou/uL (0.11-0.59); #Neutrophils 6.3 thou/uL (1.40-6.50); %Basophils 0.6 % (0.0-1.0); %Eosinophils 1.9 % (0.0-10.0); %Lymphocytes 12.2 % (21.0-51.0); %Monocytes 6.7 % (0.0-10.0); %Neutrophils 78.6 % (42.0-75.0); Hemoglobin 9.6 g/dL (14.0-18.0); Mean Corpuscular HGB CONC 32.4 g/dL (32.0-36.0); Mean Corpuscular Hemoglobin 25.7 pg (27.0-31.0); Mean Corpuscular Volume 79.4 fL (78.0-98.0); Mean Platelet Volume 7.6 fL (7.4-10.4); Platelet Count 402 thou/uL (130-400); RBC Distribution Width 16.2 % (11.5-14.5); Red Blood Cell (RBC) Count 3.73 mill/uL (4.70-6.10)
--- NOTE | 2019-11-13 14:35 | RAD ---
EXAM: CHEST ONE VIEW HISTORY: Post CABG. Follow-up evaluation. COMPARISON: 11/03/2019. FINDINGS: Postsurgical changes related to median sternotomy and CABG are again seen. The patient is rotated to the left which accentuates the cardiac silhouette and mediastinal structures. There is atelectasis seen in the left midlung zone and at left lung base. The right lung is clear. The right subclavian ce ntral venous catheter has been removed. The osseous structures are intact. IMPRESSION: Postsurgical changes related to CABG with atelectasis in the left midlung zone and left lung base.
[2019-11-13 14:44] LABS: ALT (SGPT) 13 U/L (8-55); AST (SGOT) 16 U/L (5-34); Albumin 4.1 g/dL (3.4-4.8); Alkaline Phosphatase 114 U/L (40-110); Anion Gap 19 mmol/L (10-20); BUN (Urea Nitrogen) 32 mg/dL (8.4-25.7); Bilirubin, Total 0.6 mg/dL (0.2-1.2); CK (CPK) 31 U/L (30-200); Calc. Creatinine Clearance 0 mL/min (70-130); Calcium 9.4 mg/dL (7.8-10.44); Carbon Dioxide 30 mmol/L (23-31); Chloride 92 mmol/L (98-107); Estimated GFR-MDRD 28; Globulin 2.4 g/dL (2.4-3.5); Glucose 135 mg/dL (80-115); Lipase 101 U/L (8-78); Potassium 3.9 mmol/L (3.5-5.1); Protein, Total 6.5 g/dL (5.8-8.1); Sodium 137 mmol/L (136-145)
[2019-11-13 15:11] LABS: CKMB 1.2 ng/mL (0-6.6)
--- NOTE | 2019-11-13 15:38 | CT ---
CT CHEST WITHOUT CONTRAST CT ABDOMEN WITHOUT CONTRAST CT PELVIS WITHOUT CONTRAST: HISTORY: Abdominal pain and vomiting. The patient had CABG on 10/30/2019. Oral and IV contrast reduces the sensitive of the exam, particularly for evaluation of bowel, mediast inal, hilar, vascular structures, and solid organs. FINDINGS: There are changes of median sternotomy. There is a fracture involving the left 2nd rib and probably the left 3rd rib. A small left pleural effusion is seen with adjacent atelectatic change/infiltrate. No pneumothoraces are noted. The right lung is clear. No free air or free fluid is seen in the abdomen or pelvis. A questionable tiny calcified gallstone is noted. No calculi are seen in the kidneys, ureters, or the urinary bladder. No hydroureteral nep hrosis is noted on either side. There is mild enlargement of the prostate gland. The appendix is normal. The small bowel loops are not abnormally dilated. There are degenerative changes in the thoracolumbar spine. IMPRESSION: 1. Left 2nd and probably 3rd rib fractures with small left pleural effusion and adjacent infiltrate/ atelectatic change. 2. Probable tiny gallstone. 3. No CT evidence of urinary calculi or obstruction. POS: [facility]
[2019-11-13 17:00] LABS: Critical Call Chem Troponin I RESULT DECREASING
[2019-11-13 19:01] VITALS: BMI 35.4
--- NOTE | 2019-11-13 19:39 | HP ---
PRIMARY CARE PHYSICIAN: Magi Ghosh MD CARDIOTHORACIC SURGEON: Dr. Figueredo. CHIEF COMPLAINT: Referral to ED from primary care physician's office for nausea, vomiting, fatigue times days. HISTORY OF PRESENT ILLNESS: This is a 64-year-old male with past medical history of coronary artery disease with prior stenting, who underwent recent 4-vessel CABG on 10/30/2019 and required one week hospitalization and was discharged home, who has been having postprandial nausea and vomiting, one episode per day since and 2 episodes yesterday associated with anorexia, diminished functional status with overwhelming fatigue and significant decline prompting referral to ED after presenting for routine PCP appointment today. In the emergency room, the patient was noticed to have initial blood pressure of 89/45, which is the lowest. Spouse has noted in the past week. He was administered 1 L IV fluid bolus with improvement in blood pressure to 117/56. Chemistries revealed worsening BUN and creatinine of 32/2.37 with notable creatinine 1.3 one week prior. Cardiac biomarker was obtained with elevated troponin 1.901 with unremarkable CK-MB and no prior baseline troponin comparison from last week in the absence of any anginal complaints. H and H were 9.6/29.6. The patient was admitted for further observation. At bedside, the patient corroborates history accompanied by spouse. He has tolerated ice chips today without any emesis. This morning, he ate oatmeal, orange, toast, and rice broth, which he has also tolerated. He denies any urinary complaints. He denies any complaints of peripheral edema. He denies any fevers, chills, cough, or dyspepsia complaints. He is compliant with all recently prescribed medications including lisinopril 2.5 mg daily, Toprol-XL 50 mg twice a day, twice daily for two weeks with subsequent taper and Lasix 40 mg twice daily for the past week in addition to remainder of home medications. He had a CT chest, abdomen, pelvis without oral or IV contrast was obtained in the ER, which suggested small left pleural effusion with adjacent infiltrate/atelectasis and left second and probably third rib fractures, and probable tiny gallstone, no CT evidence of any urinary calculi or obstruction. PAST MEDICAL HISTORY: Coronary artery disease with prior AK and stenting and recent CABG x4 on 10/30/[address] Figueredo, hypertension; dyslipidemia; type 2 diabetes mellitus, insulin dependent; chronic kidney disease. PAST SURGICAL HISTORY: CABG x4 on 10/30/2019, prior coronary artery stenting. SOCIAL HISTORY: The patient is . Lives with his spouse. Does not use any assistive devices with ambulation. He denies any alcohol use. He was a former smoker and stopped in 2005. ALLERGIES: LISTED PENICILLIN. REVIEW OF SYSTEMS: Pertinent positives as per HPI. Remainder of review of systems negative. MEDICATIONS: Reviewed as per medication reconciliation. FAMILY HISTORY: The patient is adopted and does not know his biological family history. PHYSICAL EXAMINATION: VITAL SIGNS: Temperature 98.9, pulse 75, blood pressure 106/59, oxygen saturation 97% on room air, respirations 17. GENERAL APPEARANCE: This is an elderly male, who is awake, alert, oriented, not in any obvious distress. HEENT: Normocephalic, atraumatic. No facial asymmetry. Pupils are equally round. Extraocular muscles are intact. No scleral icterus. No significant conjunctival pallor noted. NECK: Supple. CARDIOVASCULAR SYSTEM: S1 and S2. Regular rate and rhythm. Median sternotomy healing scar noted without dehiscence. No harsh murmurs appreciated. RESPIRATIONS: Nonlabored respiration. Bilateral equal air entry on posterior auscultation. Symmetrical chest expansion. No wheezing. No rales. ABDOMEN: Soft, nontender, nondistended. No peritoneal signs appreciated. Normoactive bowel sounds. EXTREMITIES: No edema, cyanosis, or deformities noted on limited evaluation, but healing incision sites noted on the legs. SKIN: Warm to touch without rash or abrasion with mild skin pallor noted. LABORATORY DATA: Troponin I initially 1.901 with repeat 1.690. Sodium 137, potassium 3.9, chloride 92, bicarb 30, glucose 135, BUN and creatinine are 32/2.37, GFR 28, calcium 9.4, alkaline phosphatase 114, AST 13, ALT 16. WBC 8, H and H of 9.6/29.6, platelets 402. CT chest, abdomen, pelvis, 11/13/2019, results noted. One-view chest x-ray, 11/13/2019, revealed postsurgical changes with atelectasis in left mid lung base. ASSESSMENT AND PLAN: 1. Acute kidney injury on chronic kidney disease stage 3, likely secondary to acute gastrointestinal losses and increased diuretic use and diminished oral intake. The patient will be admitted as observation status and placed on telemetry monitoring. He has received 1 L IV fluid bolus in the ER and antiemetics and has already felt better. His blood pressures are now normotensive. We will continue maintenance IV fluids, withhold oral Lasix, oral lisinopril, and monitor for symptom improvement. We will repeat a.m. labs on 11/14/2019. We will trial on clear liquid diet and advance as tolerated. 2. Acute gastrointestinal losses of unspecified etiology. The patient complains of postprandial nausea and vomiting and fatigue for the past several days. Denies any complaints of dyspepsia. Was started on empiric oral GI prophylaxis, clear liquid diet, and advance as tolerated, and monitor for patient improvement. Noted CT abdomen and pelvis without any reported gallbladder pathology. Furthermore, the patient denies any complaints of abdominal pain nor has any right upper quadrant pain. 3. Elevated troponin I of unspecified etiology. The patient is 2 weeks postop from cardiac surgical revascularization and likely troponin elevation is downtrending from recent surgical intervention. We will trend serial cardiac biomarker with notable downtrending levels. We will withhold any therapeutic anticoagulation as low suspicion for acute coronary syndrome at this time. 4. Chronic anemia of unspecified etiology. There may be a hemoconcentration component to this value as well noting likely dehydrated state. We will repeat H and H this evening and monitor for any need for blood transfusions, noting the patient fatigue. 5. Generalized weakness and deconditioning. The patient is 2 weeks postop from coronary artery bypass graft and as noted, diminished functional status in the past 1 week at home. We will consult PT and OT. The patient reports having scheduled outpatient cardiac rehab starting this Wednesday. 6. History of hypertension. The patient was hypotensive on admission and currently normotensive. We will withhold Lasix and lisinopril at this time and continue metoprolol XL and amiodarone. 7. Paroxysmal atrial fibrillation. This was noted postoperatively following CABG surgery. Continue oral amiodarone and wean as per recent CT surgery recommendations. 8. Coronary artery disease. The patient with recent coronary artery bypass graft x4 on 10/30/2019. Continue coronary artery disease preventing medications. 9. Deep venous thrombosis prophylaxis with subcutaneous Lovenox with plan to check a.m. labs on 11/14/2019. 10. Disposition: Admitted as observation status and placed on telemetry monitoring. 11. Code status: Full code. Discussed with the patient and his spouse, Sharon Barnett, who is his legal next of kin. Job ID: [id number]
[2019-11-13] MEDS: Sodium Chloride 0.9% 1,000 ML IV SCH (20:59)
[2019-11-13] MEDS: Amiodarone 200 MG TAB PO SCH (21:00)
[2019-11-13] MEDS ORDERED: Rosuvastatin 20 MG TAB PO SCH (21:00)
[2019-11-13 22:43] LABS: Hemoglobin 8.4 g/dL (14.0-18.0)
[2019-11-13 23:17] LABS: Critical Call Chem Troponin I RESULT DECREASING
[2019-11-14] MEDS: Sodium Chloride 0.9% 1,000 ML IV SCH ×2 (04:53→12:28)
[2019-11-14] MEDS: Ondansetron ODT 4 MG TAB PO PRN ×2 (04:56→14:32)
[2019-11-14 05:51] LABS: Anion Gap 11 mmol/L (10-20); BUN (Urea Nitrogen) 29 mg/dL (8.4-25.7); Calc. Creatinine Clearance 57 mL/min (70-130); Calcium 8.7 mg/dL (7.8-10.44); Carbon Dioxide 35 mmol/L (23-31); Chloride 95 mmol/L (98-107); Estimated GFR-MDRD 32; Glucose 120 mg/dL (80-115); Potassium 3.3 mmol/L (3.5-5.1); Sodium 138 mmol/L (136-145)
[2019-11-14] MEDS: Amiodarone 200 MG TAB PO SCH (08:11)
[2019-11-14] MEDS ORDERED: Aspirin 325 mg Enteric Coated Tablet PO SCH (09:00)
[2019-11-14] MEDS ORDERED: Enoxaparin Sodium 40 MG/0.4 ML SYRINGE SC SCH (09:00)
[2019-11-14 16:12] VITALS: BP 107/57; TEMP 98.7
--- NOTE | 2019-11-14 16:26 | PDOC.HOSPP ---
- Subjective Encounter Date: 11/14/19 Encounter Time: 16:25 Subjective: Mr. Gu was seen today in follow-up of Nausea and vomiting. He says his symptoms have improved. - Objective Vital Signs & Weight: Vital Signs (12 hours) Temp Pulse Pulse Pulse Resp BP BP 11/14/19 16:00 98.7 F 75 18 11/14/19 12:00 98.6 F 80 18 11/14/19 09:38 129/61 11/14/19 09:21 67 79 123/60 11/14/19 08:00 98.7 F 82 18 11/14/19 05:10 98.0 F 73 16 122/56 L BP BP Pulse Ox 11/14/19 16:00 107/57 L 95 11/14/19 12:00 105/62 100 11/14/19 09:38 121/58 L 11/14/19 09:21 129/61 11/14/19 08:00 126/58 L 97 11/14/19 05:10 94 L Weight Weight 254 lb 8 oz I&O: 11/13/19 11/14/19 11/15/19 06:59 06:59 06:59 Intake Total 1240 Output Total 1100 Balance 140 Result Diagrams: 11/13/19 22:36 11/14/19 04:51 Hospitalist ROS - Medication Medications: Active Medications Generic Name Dose Route Start Last Admin Trade Name Freq PRN Reason Stop Dose Admin Amiodarone HCl 400 mg 11/13/19 21:00 11/14/19 08:11 Cordarone PO 11/27/19 09:01 400 mg BID ELISA Administration Aspirin 325 mg 11/14/19 09:00 11/14/19 08:12 Ecotrin PO 325 mg DAILY ELISA Administration Enoxaparin Sodium 40 mg 11/14/19 09:00 11/14/19 08:11 Lovenox SC 40 mg 0900 ELISA Administration Sodium Chloride 1,000 mls @ 100 mls/hr 11/13/19 17:15 11/14/19 12:28 Normal Saline 0.9% IV 1,000 mls .Q10H ELISA Administration Metoprolol Succinate 50 mg 11/13/19 21:00 11/13/19 21:00 Toprol Xl PO 50 mg HS ELISA Administration Ondansetron HCl 4 mg 11/13/19 17:15 11/14/19 14:32 Zofran Odt PO 4 mg Q6H PRN Administration Nausea/Vomiting Rosuvastatin Calcium 40 mg 11/13/19 21:00 11/13/19 21:00 Crestor PO 40 mg HS ELISA Administration - Exam Eye: PERRL, anicteric sclera Heart: RRR, no murmur, no gallops, no rubs, normal peripheral pulses Respiratory: CTAB, no wheezes, no rales, no ronchi, normal chest expansion, no tachypnea, normal percussion Gastrointestinal: soft, non-tender, non-distended, normal bowel sounds, no palpable masses, no hepatomegaly Hosp A/P (1) Nausea & vomiting Code(s): R11.2 - NAUSEA WITH VOMITING, UNSPECIFIED Status: Acute (2) CAD (coronary artery disease) Code(s): I25.10 - ATHSCL HEART DISEASE OF [place] CORONARY ARTERY W/O ANG PCTRS Status: Acute - Plan * Nausea and vomiting- likely due to Amiodarone * He has improved * Stable for discharge home.
[2019-11-27] MEDS ORDERED: Amiodarone 200 MG TAB PO SCH (21:00)
== END 2019-11-14 17:29 | disposition home or self-care (01) ==
LOC: ERS 13:12 → 2SW 18:44
PROVIDERS: ADMIT Hospitalist; ATTEND Emergency Medicine
DX: R11.2 Nausea with vomiting, unspecified (principal); R53.83 Other fatigue; I25.10 Atherosclerotic heart disease of native coronary artery without angina pectoris; I48.0 Paroxysmal atrial fibrillation; I12.9 Hypertensive chronic kidney disease with stage 1 through stage 4 chronic kidney disease, or unspecified chronic kidney disease; E11.22 Type 2 diabetes mellitus with diabetic chronic kidney disease; N18.3 Chronic kidney disease, stage 3 (moderate); D63.1 Anemia in chronic kidney disease; N17.9 Acute kidney failure, unspecified; E78.5 Hyperlipidemia, unspecified; I25.2 Old myocardial infarction; R53.81 Other malaise; Z79.82 Long term (current) use of aspirin; Z79.84 Long term (current) use of oral hypoglycemic drugs; Z79.899 Other long term (current) drug therapy; Z87.891 Personal history of nicotine dependence; Z88.0 Allergy status to penicillin; Z95.1 Presence of aortocoronary bypass graft; Z95.5 Presence of coronary angioplasty implant and graft
CPT/HCPCS: 71045; 71250; 74177; 80048; 80053; 82550; 82553; 83690; 83880; 84484 ×2; 85014; 85018; 85025; 93005; 94760; 96360; 96361; 96372; 97139 ×4; 97530; G0378 ×2; J1650; J2405; Q0162

== ENCOUNTER 2020-06-18 14:25 | Emergency (ER) | payer MEDICARE ==
[2020-06-18 15:19] LABS: #Basophils 0.1 thou/uL (0.0-0.2); #Eosinphils 0.4 thou/uL (0.0-0.7); #Lymphocytes 1.1 thou/uL (1.20-3.40); #Monocytes 0.4 thou/uL (0.11-0.59); #Neutrophils 2.1 thou/uL (1.40-6.50); %Basophils 1.3 % (0.0-1.0); %Eosinophils 10.1 % (0.0-10.0); %Lymphocytes 26.7 % (21.0-51.0); %Monocytes 10.3 % (0.0-10.0); %Neutrophils 51.7 % (42.0-75.0); Hemoglobin 11.2 g/dL (14.0-18.0); Mean Corpuscular HGB CONC 33.5 g/dL (32.0-36.0); Mean Corpuscular Hemoglobin 26.9 pg (27.0-31.0); Mean Corpuscular Volume 80.5 fL (78.0-98.0); Mean Platelet Volume 9.7 fL (7.4-10.4); Platelet Count 159 thou/uL (130-400); RBC Distribution Width 17.5 % (11.5-14.5); Red Blood Cell (RBC) Count 4.17 mill/uL (4.70-6.10)
[2020-06-18] MEDS ORDERED: Insulin Regular 300 UNITS/3 ML VIAL ONE (15:21)
[2020-06-18 15:39] LABS: ALT (SGPT) 19 U/L (8-55); AST (SGOT) 17 U/L (5-34); Albumin 4.7 g/dL (3.4-4.8); Alkaline Phosphatase 88 U/L (40-110); Anion Gap 14 mmol/L (10-20); BUN (Urea Nitrogen) 22 mg/dL (8.4-25.7); Bilirubin, Total 0.6 mg/dL (0.2-1.2); Calc. Creatinine Clearance 0 mL/min (70-130); Calcium 10.4 mg/dL (7.8-10.44); Carbon Dioxide 31 mmol/L (23-31); Chloride 92 mmol/L (98-107); Estimated GFR-MDRD 35; Globulin 3.1 g/dL (2.4-3.5); Potassium 4.7 mmol/L (3.5-5.1); Protein, Total 7.8 g/dL (5.8-8.1); Sodium 132 mmol/L (136-145)
[2020-06-18 15:53] LABS: Glucose 603 mg/dL (80-115)
[2020-06-18 17:20] LABS: Bacteria/HPF None Seen HPF (None Seen); Bilirubin Negative (Negative); Blood, Urine Negative (Negative); Clarity Clear (Clear); Glucose, Urine (Dipstick) Greater than 1000 mg/dL (Negative); Ketone, Urine Negative (Negative); Leukocyte Negative Leu/uL (Negative); Nitrite Negative (Negative); Protein, Urine (Dipstick) 30 mg/dL (Neg-Trace); RBC/HPF 0-3 HPF (0-3); Specific Gravity, Urine 1.018 (1.002-1.036); Squamous Epithelial None Seen HPF (0-3); Urobilinogen Normal mg/dL (Less than 2); WBC/HPF 0-3 HPF (0-3); pH, Urine 6.5 (5.0-9.0)
== END 2020-06-18 17:00 | disposition short-term general hospital (02) ==
LOC: ERS 14:25
DX: E11.65 Type 2 diabetes mellitus with hyperglycemia (principal); I10 Essential (primary) hypertension; I25.2 Old myocardial infarction; E78.5 Hyperlipidemia, unspecified; Z79.82 Long term (current) use of aspirin; Z79.84 Long term (current) use of oral hypoglycemic drugs; Z79.899 Other long term (current) drug therapy; Z95.1 Presence of aortocoronary bypass graft; Z87.891 Personal history of nicotine dependence
CPT/HCPCS: 80053 ×2; 82010; 82043; 82306; 82962; 83036; 83930; 84270; 84403; 85025 ×2; 87086; 96360; 96361; 99284; G0103; 36415; 36416; 81003; 81015; J1815

== ENCOUNTER 2021-11-11 14:54 | Outpatient (CLI) | payer MEDICARE | END 2021-11-11 14:55 | disposition home or self-care (01) | LOC: BICCT 14:54 | PROVIDERS: ATTEND Family Medicine | DX: Z12.2 Encounter for screening for malignant neoplasm of respiratory organs (principal); F17.211 Nicotine dependence, cigarettes, in remission | CPT/HCPCS: 71271 ==

== ENCOUNTER 2022-05-21 16:43 | Emergency (ER) | payer MEDICARE ==
[2022-05-21] MEDS ORDERED: Morphine 4 MG/ML VIAL ONE (19:49)
[2022-05-21] MEDS ORDERED: Ondansetron ODT 4 MG TAB ONE (19:49)
[2022-05-21 21:47] LABS: #Eosinphils 0.5 thou/uL (0.0-0.7); #Lymphocytes 1.2 thou/uL (1.20-3.40); #Monocytes 0.7 thou/uL (0.11-0.59); #Neutrophils 7.1 thou/uL (1.40-6.50); %Basophils 0.5 % (0.0-1.0); %Eosinophils 5.1 % (0.0-10.0); %Lymphocytes 12.9 % (21.0-51.0); %Monocytes 7.2 % (0.0-10.0); %Neutrophils 74.4 % (42.0-75.0); Hemoglobin 12.1 g/dL (14.0-18.0); Mean Corpuscular HGB CONC 34.3 g/dL (32.0-36.0); Mean Corpuscular Hemoglobin 29.4 pg (27.0-31.0); Mean Platelet Volume 8.2 fL (7.4-10.4); Platelet Count 149 thou/uL (130-400); RBC Distribution Width 14.8 % (11.5-14.5); White Blood Cell (WBC) Count 9.6 thou/uL (4.8-10.8)
[2022-05-21] MEDS ORDERED: Ketorolac Tromethamine 30 MG/ML VIAL ONE (21:59)
[2022-05-21 22:09] LABS: ALT (SGPT) 17 U/L (8-55); AST (SGOT) 19 U/L (5-34); Alkaline Phosphatase 58 U/L (40-110); Anion Gap 19 mmol/L (10-20); BUN (Urea Nitrogen) 31 mg/dL (8.4-25.7); Bilirubin, Total 0.6 mg/dL (0.2-1.2); Calc. Creatinine Clearance 0 mL/min (70-130); Calcium 9.9 mg/dL (7.8-10.44); Carbon Dioxide 24 mmol/L (23-31); Chloride 98 mmol/L (98-107); Globulin 2.6 g/dL (2.4-3.5); Glucose 281 mg/dL (80-115); Potassium 4.8 mmol/L (3.5-5.1); Protein, Total 6.6 g/dL (5.8-8.1); Sodium 136 mmol/L (136-145)
[2022-05-21] MEDS ORDERED: Ondansetron PF 4 MG/2 ML Vial ONE (22:51)
== END 2022-05-21 23:11 | disposition home or self-care (01) ==
LOC: ERS 16:43
DX: S80.211A Abrasion, right knee, initial encounter (principal); M25.511 Pain in right shoulder; M54.6 Pain in thoracic spine; E11.9 Type 2 diabetes mellitus without complications; I10 Essential (primary) hypertension; Z87.891 Personal history of nicotine dependence; W19.XXXA Unspecified fall, initial encounter
CPT/HCPCS: 36415; 72128; 72131; 72170; 80053; 85025; 93005; 96372; 96374; 96375; J1885; J2270; J2405; Q0162

== ENCOUNTER 2022-12-27 11:56 | Inpatient (IN) | payer MEDICARE, OTHER ==
[2022-12-27] MEDS ORDERED: Nitroglycerin 2% Ointment 1 INCH/1 GM Packet ONE ×2 (12:21→22:04)
[2022-12-27] MEDS ORDERED: Nitroglycerin 0.4 MG TAB 1 EACH ONE (12:21)
[2022-12-27] MEDS ORDERED: Furosemide 40 MG/4 ML VIAL ONE (12:21)
[2022-12-27 12:44] LABS: #Basophils 0.1 thou/uL (0.0-0.2); #Eosinphils 0.4 thou/uL (0.0-0.7); #Monocytes 0.5 thou/uL (0.11-0.59); %Eosinophils 5.3 % (0.0-10.0); %Lymphocytes 14.4 % (21.0-51.0); %Monocytes 7.6 % (0.0-10.0); %Neutrophils 71.7 % (42.0-75.0); Hemoglobin 11.4 g/dL (14.0-18.0); Mean Corpuscular HGB CONC 33.6 g/dL (32.0-36.0); Mean Corpuscular Volume 83.4 fl (78.0-98.0); Mean Platelet Volume 7.2 fL (7.4-10.4); Platelet Count 226 10x3/uL (130-400); Red Blood Cell (RBC) Count 4.09 mill/uL (4.70-6.10); White Blood Cell (WBC) Count 6.9 10x3/uL (4.8-10.8)
[2022-12-27 13:02] LABS: ALT (SGPT) 13 U/L (8-55); AST (SGOT) 12 U/L (5-34); Albumin 3.8 g/dL (3.4-4.8); Alkaline Phosphatase 57 U/L (40-110); Anion Gap 16 mmol/L (10-20); BUN (Urea Nitrogen) 12 mg/dL (8.4-25.7); Bilirubin, Total 0.7 mg/dL (0.2-1.2); Calc. Creatinine Clearance 0 mL/min (70-130); Calcium 9.9 mg/dL (7.8-10.44); Carbon Dioxide 25 mmol/L (23-31); Chloride 102 mmol/L (98-107); Estimated GFR 75; Globulin 3.1 g/dL (2.4-3.5); Glucose 252 mg/dL (80-115); Potassium 3.9 mmol/L (3.5-5.1); Protein, Total 6.9 g/dL (5.8-8.1); Sodium 139 mmol/L (136-145)
[2022-12-27 13:23] LABS: CKMB 1.9 ng/mL (0-6.6)
[2022-12-27] MEDS ORDERED: Dextrose 5% in Water 1,000 ML IV PRN (15:09)
[2022-12-27] MEDS ORDERED: Dextrose 50% Abboject 50 ML SYRINGE SLOW IVP PRN (15:09)
[2022-12-27] MEDS ORDERED: Acetaminophen 325 MG TAB PO PRN (15:09)
[2022-12-27] MEDS ORDERED: Metoclopramide HCl 10 MG/2 ML VIAL IVP PRN (15:24)
[2022-12-27 15:39] LABS: SARS-CoV-2 NAA Rapid Test Not Detected (NotDetected)
[2022-12-27] MEDS ORDERED: Sodium Chloride 0.9% 500 ML IV SCH (16:00)
[2022-12-27] MEDS ORDERED: Metoprolol Tartrate 50 MG TAB ONE (22:04)
[2022-12-27] MEDS: Nitroglycerin 2% Ointment 1 INCH/1 GM Packet TOP SCH (22:07)
[2022-12-27] MEDS ORDERED: Acetaminophen 325 MG TAB ONE (23:11)
[2022-12-27] MEDS: Rosuvastatin 20 MG TAB PO SCH (23:14)
[2022-12-28] MEDS ORDERED: HumaLOG 300 UNITS/3 ML VIAL ONE (01:18)
[2022-12-28] MEDS: HumaLOG 300 UNITS/3 ML VIAL SC PRN ×3 (01:21→20:52)
[2022-12-28 04:56] VITALS: BMI 35.9
[2022-12-28 05:24] LABS: #Basophils 0.1 thou/uL (0.0-0.2); #Eosinphils 0.4 thou/uL (0.0-0.7); #Lymphocytes 1.2 thou/uL (1.20-3.40); #Monocytes 0.6 thou/uL (0.11-0.59); #Neutrophils 4.1 thou/uL (1.40-6.50); %Basophils 1.1 % (0.0-1.0); %Eosinophils 6.8 % (0.0-10.0); %Lymphocytes 18.9 % (21.0-51.0); %Monocytes 9.8 % (0.0-10.0); %Neutrophils 63.4 % (42.0-75.0); Hemoglobin 10.1 g/dL (14.0-18.0); Mean Corpuscular HGB CONC 33.1 g/dL (32.0-36.0); Mean Corpuscular Hemoglobin 27.4 pg (27.0-31.0); Mean Corpuscular Volume 82.7 fl (78.0-98.0); Mean Platelet Volume 7.5 fL (7.4-10.4); Platelet Count 210 10x3/uL (130-400); RBC Distribution Width 15.1 % (11.5-14.5); Red Blood Cell (RBC) Count 3.71 mill/uL (4.70-6.10); White Blood Cell (WBC) Count 6.4 10x3/uL (4.8-10.8)
[2022-12-28 05:34] LABS: Anion Gap 15 mmol/L (10-20); BUN (Urea Nitrogen) 14 mg/dL (8.4-25.7); Calc. Creatinine Clearance 91 mL/min (70-130); Calcium 9.6 mg/dL (7.8-10.44); Carbon Dioxide 27 mmol/L (23-31); Chloride 101 mmol/L (98-107); Estimated GFR 66; Glucose 262 mg/dL (80-115); Potassium 3.5 mmol/L (3.5-5.1); Sodium 139 mmol/L (136-145)
[2022-12-28] MEDS: Furosemide 40 MG/4 ML VIAL SLOW IVP SCH ×2 (06:21→13:39)
[2022-12-28] MEDS: Nitroglycerin 2% Ointment 1 INCH/1 GM Packet TOP SCH ×3 (06:21→20:38)
[2022-12-28] MEDS: Fenofibrate 48 MG TAB PO SCH (08:33)
[2022-12-28] MEDS: Lisinopril 2.5 MG TAB PO SCH (08:33)
[2022-12-28] MEDS: Aspirin Chewable 81 MG TAB PO SCH (08:33)
[2022-12-28] MEDS: Rosuvastatin 20 MG TAB PO SCH (20:40)
[2022-12-29] MEDS: Furosemide 40 MG/4 ML VIAL SLOW IVP SCH ×2 (06:14→14:17)
[2022-12-29] MEDS: HumaLOG 300 UNITS/3 ML VIAL SC PRN ×4 (06:16→21:27)
[2022-12-29] MEDS: Nitroglycerin 2% Ointment 1 INCH/1 GM Packet TOP SCH ×3 (06:19→21:26)
[2022-12-29] MEDS: Aspirin Chewable 81 MG TAB PO SCH (08:06)
[2022-12-29] MEDS: Lisinopril 2.5 MG TAB PO SCH (08:07)
[2022-12-29] MEDS: Fenofibrate 48 MG TAB PO SCH (08:08)
[2022-12-29] MEDS ORDERED: Insulin Glargine 30 UNITS/0.3 ML VIAL SC SCH (21:00)
[2022-12-29] MEDS ORDERED: glipiZIDE 10 MG TAB PO SCH (21:16)
[2022-12-29] MEDS: Rosuvastatin 20 MG TAB PO SCH (21:21)
[2022-12-30] MEDS: Nitroglycerin 2% Ointment 1 INCH/1 GM Packet TOP SCH (06:04)
[2022-12-30] MEDS: Furosemide 40 MG/4 ML VIAL SLOW IVP SCH (06:04)
[2022-12-30] MEDS: HumaLOG 300 UNITS/3 ML VIAL SC PRN (06:13)
[2022-12-30 06:19] LABS: Hemoglobin A1c 7.9 % (4.0-6.0)
[2022-12-30 06:21] LABS: ALT (SGPT) 11 U/L (8-55); AST (SGOT) 9 U/L (5-34); Albumin 3.7 g/dL (3.4-4.8); Alkaline Phosphatase 54 U/L (40-110); Anion Gap 16 mmol/L (10-20); BUN (Urea Nitrogen) 19 mg/dL (8.4-25.7); Bilirubin, Total 0.5 mg/dL (0.2-1.2); Calc. Creatinine Clearance 72 mL/min (70-130); Carbon Dioxide 30 mmol/L (23-31); Chloride 98 mmol/L (98-107); Estimated GFR 52; Glucose 233 mg/dL (80-115); Potassium 3.5 mmol/L (3.5-5.1); Protein, Total 6.7 g/dL (5.8-8.1); Sodium 140 mmol/L (136-145)
[2022-12-30] MEDS ORDERED: glipiZIDE 10 MG TAB PO SCH (09:00)
[2022-12-30] MEDS: Aspirin Chewable 81 MG TAB PO SCH (09:02)
[2022-12-30] MEDS: Fenofibrate 48 MG TAB PO SCH (09:02)
[2022-12-30] MEDS: Lisinopril 2.5 MG TAB PO SCH (09:02)
[2022-12-30] MEDS ORDERED: Sodium Chloride 0.9% 250 ML IV SCH (10:15)
[2022-12-30] MEDS ORDERED: Sodium Chloride 0.9% 500 ML IV SCH (10:15)
[2022-12-30 12:42] VITALS: BP 114/61; TEMP 99.3
== END 2022-12-30 13:30 | disposition home or self-care (01) | DRG 291 ==
LOC: ERS 11:56 → ERHOLD 15:45 → 2SW 12-28 03:49
PROVIDERS: ADMIT Internal Medicine; ATTEND Internal Medicine
DX: I11.0 Hypertensive heart disease with heart failure (principal); I50.43 Acute on chronic combined systolic (congestive) and diastolic (congestive) heart failure; N17.9 Acute kidney failure, unspecified; Z20.822 Contact with and (suspected) exposure to COVID-19; I25.10 Atherosclerotic heart disease of native coronary artery without angina pectoris; I48.0 Paroxysmal atrial fibrillation; E78.5 Hyperlipidemia, unspecified; R94.31 Abnormal electrocardiogram [ECG] [EKG]; D64.9 Anemia, unspecified; E11.65 Type 2 diabetes mellitus with hyperglycemia; I25.5 Ischemic cardiomyopathy; Z95.5 Presence of coronary angioplasty implant and graft; Z95.1 Presence of aortocoronary bypass graft; Z88.0 Allergy status to penicillin; Z88.5 Allergy status to narcotic agent; Z79.899 Other long term (current) drug therapy; Z79.84 Long term (current) use of oral hypoglycemic drugs
CPT/HCPCS: 36415; 36416; 71045; 71275; 80048; 80053; 82553; 83036; 83880; 84443; 84484; 85025; 85379; 93005; 93306; 93798; 96374; J1650; J1815; J1940; J7030; U0002

== ENCOUNTER 2023-06-09 08:43 | Emergency (ER) | payer OTHER ==
[2023-06-09 09:33] LABS: #Basophils 0.1 thou/uL (0.0-0.2); #Eosinphils 0.3 thou/uL (0.0-0.7); #Monocytes 0.5 thou/uL (0.11-0.59); #Neutrophils 4.7 thou/uL (1.40-6.50); %Basophils 1.1 % (0.0-1.0); %Eosinophils 4.3 % (0.0-10.0); %Lymphocytes 14.3 % (21.0-51.0); %Monocytes 7.4 % (0.0-10.0); %Neutrophils 72.6 % (42.0-75.0); Hemoglobin 12.9 g/dL (14.0-18.0); Mean Corpuscular HGB CONC 31.6 g/dL (32.0-36.0); Mean Corpuscular Hemoglobin 24.6 pg (27.0-31.0); Mean Corpuscular Volume 77.7 fl (78.0-98.0); Mean Platelet Volume 10.1 fL (7.4-10.4); Platelet Count 179 10x3/uL (130-400); RBC Distribution Width 16.1 % (11.5-14.5); Red Blood Cell (RBC) Count 5.25 mill/uL (4.70-6.10); White Blood Cell (WBC) Count 6.5 10x3/uL (4.8-10.8)
[2023-06-09 10:11] LABS: ALT (SGPT) 12 U/L (8-55); AST (SGOT) 12 U/L (5-34); Albumin 4.3 g/dL (3.4-4.8); Alkaline Phosphatase 73 U/L (40-110); Anion Gap 16 mmol/L (10-20); BUN (Urea Nitrogen) 27 mg/dL (8.4-25.7); Bilirubin, Total 0.5 mg/dL (0.2-1.2); Calc. Creatinine Clearance 0 mL/min (70-130); Calcium 10.4 mg/dL (7.8-10.44); Carbon Dioxide 26 mmol/L (23-31); Chloride 96 mmol/L (98-107); Estimated GFR 40; Globulin 2.5 g/dL (2.4-3.5); Glucose 375 mg/dL (80-115); Magnesium 1.6 mg/dL (1.6-2.6); Potassium 4.9 mmol/L (3.5-5.1); Protein, Total 6.8 g/dL (5.8-8.1); Sodium 133 mmol/L (136-145)
== END 2023-06-09 11:56 | disposition home or self-care (01) ==
LOC: ERS 08:43
DX: R51.9 Headache, unspecified (principal); E11.65 Type 2 diabetes mellitus with hyperglycemia; E78.5 Hyperlipidemia, unspecified; I10 Essential (primary) hypertension; W18.30XA Fall on same level, unspecified, initial encounter; Z87.891 Personal history of nicotine dependence
CPT/HCPCS: 36415; 36416; 70450; 70486; 80053; 83735; 84100; 85025